=== PATIENT | female | born 1980 | race Caucasian/White ===

== ENCOUNTER 2016-09-25 12:34 | Inpatient (IN) ==
[2016-09-25] MEDS ORDERED: M.V.I.-12 10 ML, FOLIC ACID 1 MG, MAGNESIUM SULFATE 1 GM, THIAMINE 100 MG in NS 1,000 ML IV ONE (14:07)
[2016-09-25] MEDS ORDERED: ATIVAN IV ONE (14:34)
[2016-09-25 14:45] LABS: UR AMPHETAMINES QUAL NONE DETECTED (NONE DETECT); UR BARBITUATES QUAL NONE DETECTED (NONE DETECT); UR BENZODIAZEPIN QUAL PRESUMPTIVE POSITIVE (NONE DETECT); UR CANNABINOIDS QUAL NONE DETECTED (NONE DETECT); UR COCAINE QUAL NONE DETECTED (NONE DETECT); UR MDMA QUAL NONE DETECTED (NONE DETECT); UR METHADONE QUAL NONE DETECTED (NONE DETECT); UR METHAMPHETAMINE QUAL NONE DETECTED (NONE DETECT); UR OPIATES QUAL NONE DETECTED (NONE DETECT); UR OXYCODONE QUAL NONE DETECTED (NONE DETECT); UR PCP QUAL NONE DETECTED (NONE DETECT); UR TCA QUAL PRESUMPTIVE POSITIVE (NONE DETECT)
[2016-09-25 14:55] LABS: ALBUMIN 3.1 g/dL (3.5-5.0); ALKALINE PHOSPHATASE 423 U/L (32-104); BUN 5 mg/dL (8-22); CALCIUM 8.1 mg/dL (8.8-10.2); CHLORIDE 94 mmol/L (98-107); COSMO 271; GOT 376 U/L (10-30); GPT 153 U/L (10-36); SODIUM 137 mmol/L (136-145); TOTAL PROTEIN 6.2 g/dL (6.3-8.3)
[2016-09-25 15:08] LABS: POTASSIUM 2.3 mmol/L (3.5-5.1)
[2016-09-25 15:08] LABS: BASO% 0.6 % (0.0-0.8); EOS# 0.01 X1000 (0.0-0.7); EOS% 0.1 % (0.0-10.0); HEMATOCRIT 31.5 % (37.0-47.0); IMM GRAN# 0.06 X1000 (0.0-0.04); IMM GRAN% 0.8 % (0.0-0.5); LYMPH% 26.6 % (20.5-51.1); MANUAL DIFF NEEDED? YES; MCH 30.5 PG (27-31); MCHC 31.7 g/dL (33-37); MONO# 0.69 X1000 (0.11-0.59); MONO% 9.7 % (1.7-9.3); MPV 10.3 FL (7.4-10.4); NEUT% 62.2 % (42.2-75.2); PLT 347 X1000 (130-400); RBC 3.28 XMIL (4.2-5.4)
[2016-09-25 15:13] LABS: AGAP 21; TCO2 22 mmol/L (25-35)
[2016-09-25] MEDS ORDERED: NS + KCL 40 MEQ 1,000 ML IV SCH ×2 (15:32→16:10)
[2016-09-25] MEDS ORDERED: KLOR-CON PO ONE (15:36)
[2016-09-25 15:57] LABS: BANDS 2 % (0-1); EOS 1 % (1-10); LYMPHS 36 % (21-51); MONO 2 % (1-9)
--- NOTE | 2016-09-25 16:33 | PROVIDER DOCUMENTATION ---
This chart was entered by Abisai Bonilla Scribe, acting as scribe for León Manjarrez Jr, MD. HPI-General Adult - General Chief Complaint: General Adult Stated Complaint: WITHDRAWAL Time Seen by Provider: 09/25/16 13:24 Source: patient Allergies/Adverse Reactions: Patient Allergies Allergy/AdvReac Type Severity Reaction Status Date / Time No Known Allergies Allergy Verified 03/26/13 04:17 Home Medications: Home Medication List Medication Instructions Recorded Confirmed Last Taken Type NK [No Home Medications] 09/25/16 09/25/16 Unknown History - History of Present Illness -Gen Adult Nature of Presenting Problems: Pt is a 35 yof that presents to er with cc of possible panic attack. Pt reports she drinks 1/2 gallon of vodka daily and reports went two days without drinking drank yesterday and woke up this am at 0900 with fast heart rate,jittery feeling,and blurry vision. Pt reports she probably has Hepatitis A. Location of Pain/Injury: reports: generalized Quality of Pain: reports: none Severity: reports: moderate Onset/Duration: reports: this morning Timing: reports: still present Similar Symptoms Previously?: No Recently seen or treated by another doctor?: No Review of Systems - Adult - REVIEW OF SYSTEMS - ADULT Constitutional: denies: chills, fever, fatique Eyes: reports: no symptoms reported Ears, Nose, Mouth & Throat: denies: ear pain, sinus problem, throat pain Cardiovascular: reports: palpitations. denies: chest pain, irregular heart rate , orthopnea, syncope Respiratory: denies: cough, shortness of breath, wheezing Gastrointestinal: reports: no symptoms reported Genitourinary: reports: no symptoms reported Musculoskeletal: reports: no symptoms reported Integumentary: reports: no symptoms reported Neurological: reports: tremors. denies: numbness, paresthesia, seizure, slurred speech Psychiatric: reports: alcohol/drug dependence. denies: anxiety, anti- depressant use, depression, emotional problems, insomnia, panic attacks, suicidal thoughts Endocrine: reports: no symptoms reported Hematologic/Lymphatic: reports: no symptoms reported Allergic/Immunologic: reports: no symptoms reported All Other Systems: Reviewed and Negative Past History - Adult - PAST MEDICAL HISTORY-ADULT Review of Records: reports: Nursing Assessment Review, Medications Reviewed Major Childhood Illnesses: reports: denies history Cardiovascular: reports: denies history Respiratory: reports: denies history - IMMUNIZATION STATUS Childhood Immunizations: See Nurse Assessment Flu Vaccine: See Nurse Assessment - FAMILY HISTORY Family History: reviewed, not pertinent - SOCIAL HISTORY Smoking: denies Substance Use: alcohol Alcohol Use Frequency: every day Number of drinks per typical drinking period:: 16-20 drinks (1/2 gallon of vodka ) Physical Exam-General - PHYSICAL EXAM-ADULT Initial Vital Signs Reviewed: Yes - CONSTITUTIONAL General Appearance: alert, no apparent distress. negative: appears well - EYES Eyes: PERRL/EOMI, other (bilateral jaundice eyes) - HEAD, EARS, NOSE, MOUTH & THROAT HENMT: moist mucous membranes, TMs normal, pharynx normal - NECK Neck: non-tender, full range of motion, supple, normal inspection - RESPIRATORY Respiratory: chest non-tender, lungs clear, normal breath sounds, no pleuratic chest pain, no respiratory distress, no accessory muscle use - CARDIOVASCULAR Cardiovascular: tachycardia - GASTROINTESTINAL (ABDOMEN) Abdominal Exam: non tender, soft, no organomegaly, no pulsatile mass - MUSCULOSKELETAL Extremity: normal range of motion, non-tender, other (jittery) - SKIN Integumentary: normal turgor, jaundice - PSYCHIATRIC Psych/Mental Status: oriented x 3, depressed affect Progress - PLAN OF CARE/RESULTS Progress/Plan/Lab Results: Vital Signs - 8 hr 09/25/16 12:39 Temperature 98 F Pulse Rate 126 H Respiratory Rate 22 Blood Pressure 148/87 O2 Sat by Pulse Oximetry 99 Laboratory Tests 09/25/16 09/25/16 09/25/16 13:00 14:02 14:13 WBC 7.14 RBC 3.28 L Hgb 10.0 L Hct 31.5 L MCV 96.0 MCH 30.5 MCHC 31.7 L RDW Std Deviation 23.4 H Plt Count 347 MPV 10.3 Immature Gran % (Auto) 0.8 H Neut % (Auto) 62.2 Lymph % (Auto) 26.6 Alexander % (Auto) 9.7 H Eos % (Auto) 0.1 Baso % (Auto) 0.6 Immature Gran # (Auto) 0.06 H Neut # (Auto) 4.44 Lymph # (Auto) 1.90 Alexander # (Auto) 0.69 H Eos # (Auto) 0.01 Baso # (Auto) 0.04 Segmented Neutrophils 59 Band Neutrophils 2 H Lymphocytes 36 Monocytes 2 Eosinophils 1 Anisocytosis 1+ Sodium 137 Potassium 2.3 L* Chloride 94 L Carbon Dioxide 22 L Anion Gap 21 BUN 5 L Creatinine 0.3 L Estimated GFR/1.73 m2 > 60 BUN/Creatinine Ratio 17 Glucose 93 Calculated Osmolality 271 Calcium 8.1 L Total Bilirubin 11.30 H AST 376 H ALT 153 H Alkaline Phosphatase 423 H Total Protein 6.2 L Albumin 3.1 L Globulin 3.0 Albumin/Globulin Ratio 1.0 Vitamin B12 Folate Urine Opiates Screen NONE DETECTED Ur Oxycodone Screen NONE DETECTED Urine Methadone Screen NONE DETECTED Ur Barbituates Screen NONE DETECTED Ur Tricyclics Screen PRESUMPTIVE POSITIVE A Ur Phencyclidine Scrn NONE DETECTED Ur Amphetamines Screen NONE DETECTED U Methamphetamines Scrn NONE DETECTED Urine MDMA Screen NONE DETECTED U Benzodiazepines Scrn PRESUMPTIVE POSITIVE A Urine Cocaine Screen NONE DETECTED U Cannabinoids Screen NONE DETECTED Plasma/Serum Ethyl Alc 09/25/16 09/25/16 09/25/16 14:13 14:13 14:13 WBC RBC Hgb Hct MCV MCH MCHC RDW Std Deviation Plt Count MPV Immature Gran % (Auto) Neut % (Auto) Lymph % (Auto) Alexander % (Auto) Eos % (Auto) Baso % (Auto) Immature Gran # (Auto) Neut # (Auto) Lymph # (Auto) Alexander # (Auto) Eos # (Auto) Baso # (Auto) Segmented Neutrophils Band Neutrophils Lymphocytes Monocytes Eosinophils Anisocytosis Sodium Potassium Chloride Carbon Dioxide Anion Gap BUN Creatinine Estimated GFR/1.73 m2 BUN/Creatinine Ratio Glucose Calculated Osmolality Calcium Total Bilirubin AST ALT Alkaline Phosphatase Total Protein Albumin Globulin Albumin/Globulin Ratio Vitamin B12 > 2000 H Folate 37.7 H Urine Opiates Screen Ur Oxycodone Screen Urine Methadone Screen Ur Barbituates Screen Ur Tricyclics Screen Ur Phencyclidine Scrn Ur Amphetamines Screen U Methamphetamines Scrn Urine MDMA Screen U Benzodiazepines Scrn Urine Cocaine Screen U Cannabinoids Screen Plasma/Serum Ethyl Alc 40 H Result Diagrams: 09/25/16 14:02 09/25/16 14:13 - CONSULTS/PCP/HOSPITALIST Notification #1 *Consult/PCP/Hospitalist*: Time Discussed: 15:38 Consult Disposition: Will see in ED Departure - Departure Time of Disposition Decision: 16:23 DIAGNOSIS: Alcohol withdrawal, Hypokalemia, Elevated liver enzymes, Jaundice Disposition: ADMITTED INPATIENT 09 Certified Medical Emergency: Emergent Condition: Fair Referrals and Follow-Ups: None,PCP [Primary Care Provider] - This chart was documented by the indicated scribe, (Abisai Bonilla Scribe) and accurately reflects the services I performed and decisions made by me, León Manjarrez Jr, MD, as attested by the provider's signature.
--- NOTE | 2016-09-25 17:05 | HISTORY AND PHYSICAL ---
PRIMARY CARE PHYSICIAN: None. CHIEF COMPLAINT: Nausea and vomiting of black emesis after attempting to stop drinking when she had been drinking 1/2 gallon of vodka daily. HISTORY OF PRESENTING ILLNESS: This is a 35-year-old female who presented to [facility] ER with complaints of nausea, vomiting of black emesis, abdominal pain, feeling jittery, blurred vision, and increased heart rate. She sates that she has been a 1/2 gallon a day drinker of vodka. Two days ago, she attempted to stop. She began back drinking yesterday. During the 2 days that she attempted to stop, she began having nausea and vomiting that turned to blackish-brown emesis, according to the patient, with abdominal pain and tenderness, primarily in the epigastric area. Workup in the ER today showed a heart rate of 126. Labs showed a hemoglobin and hematocrit of 10 and 31.5. Her potassium was 2.3. Her total bilirubin is 11.3, AST of 376, ALT 153, alkaline phosphatase 423. Her serum alcohol level today is 40. Her urine drug screen was presumptive positive for tricyclics and benzodiazepines, and so she will be admitted to [facility] for further evaluation and treatment and GI consultation. PAST MEDICAL HISTORY: Questionable for hepatitis A, seizures, and hypertension. PAST SURGICAL HISTORY: None. FAMILY HISTORY: Breast cancer in her grandmother. SOCIAL HISTORY: She currently lives with her mom. Denies any tobacco use. Drinks 1/2 gallon of vodka daily. Denied any illicit drug use. ALLERGIES: She has no known drug allergies. HOME MEDICATIONS: She does not take any medications on a routine basis. LABORATORY DATA: Showed a white blood cell count of 7.14, hemoglobin of 10, hematocrit 31.5, platelets 347,000. Sodium of 137, potassium 2.3, chloride 94, CO2 of 22, BUN of 5, creatinine 0.3. Total bilirubin of 11.3. AST of 376, ALT of 153, alkaline phosphatase 423. Vitamin B12 greater than 2000. Urine drug screen presumptive positive for tricyclics and benzodiazepines with a serum alcohol level of 40. REVIEW OF SYSTEMS: She denied any fever or chills. She has had some blurred vision, jitteriness, increased heart rate. Denied chest pain, coughing, shortness of breath. She is positive for epigastric abdominal pain, nausea, vomiting with hematemesis. Denied any constipation, diarrhea, or burning or hurting with urination. PHYSICAL EXAMINATION: VITAL SIGNS: On arrival, she had a temperature of 98 degrees, a pulse of 126, respirations 22, blood pressure 148/87, saturating 99% on room air. GENERAL: This is a 35-year-old female who is lying in the bed and answers questions appropriately. HEENT: Normocephalic and atraumatic. Pupils are equal, round, and reactive to light. The extraocular movements are intact. The oropharynx and nares are clear. NECK: Supple. LUNGS: Clear to auscultation bilaterally with equal lung expansion and chest wall movement. HEART: With regular rate and rhythm. No murmurs, rubs, or gallops. ABDOMEN: Soft. Tenderness to palpation to the epigastric area. Bowel sounds are present x4 quadrants. EXTREMITIES: No clubbing, cyanosis, or edema. NEUROLOGICAL: The cranial nerves 2 through 12 are grossly intact. ASSESSMENT: 1. Alcohol abuse and withdrawal. 2. Acute alcohol Hepatitis with discriminant score 12 hepatic syndrome. 3. Elevated liver function tests. 4. Hypokalemia. 5. Suspected GI bleed PLAN: She will be transferred to [facility] and admitted to the C[facility] floor, placed on telemetry, held n.p.o. We will consult GI. Check serial hemoglobin and hematocrit every [address] on normal saline at 150 mL an hour, potassium 20 mEq IV x2 bags. Placed on a Protonix drip. Ativan 1 to 2 mg IV every 4 hours p.r.n.. She has a folate, hepatitis profile, and a PT with INR pending in the ER right now. The patient states she is definitely interested in obtaining help for alcohol cessation, so at discharge we will assist her with obtaining that help at that time. Dictated by JOSUE Goodrich for Chago Zarco MD cc: JOSUE Goodrich MD [facility]
[2016-09-25] MEDS: ATIVAN IV PRN (18:37)
[2016-09-25] MEDS: NS 1,000 ML IV SCH (18:40)
[2016-09-25] MEDS: POTASSIUM CHLORIDE 20 MEQ/SWI 20 MEQ/100 ML IVPB IV SCH ×2 (19:15→21:58)
[2016-09-25] MEDS: PROTONIX 80 MG in NS 100 ML IV SCH (19:16)
[2016-09-25 20:05] LABS: HEMATOCRIT 29.8 % (37.0-47.0); HEMOGLOBIN 9.4 g/dL (12.0-16.0)
[2016-09-25 20:11] LABS: INR 1.14; PROTIME 12.1 Seconds (9.2-11.7)
[2016-09-25] MEDS ORDERED: PHENOBARBITAL IV ONE (21:25)
[2016-09-25] MEDS: VALIUM IV SCH ×2 (21:58→22:53)
[2016-09-26] MEDS: NS 1,000 ML IV SCH ×4 (00:51→21:46)
[2016-09-26] MEDS: ATIVAN IV PRN ×8 (01:38→21:47)
[2016-09-26 02:55] LABS: HEMATOCRIT 25.1 % (37.0-47.0); HEMOGLOBIN 7.8 g/dL (12.0-16.0)
[2016-09-26] MEDS: PROTONIX 80 MG in NS 100 ML IV SCH ×3 (04:42→21:46)
[2016-09-26] MEDS ORDERED: PNEUMOVAX 23 IM ONE (05:48)
[2016-09-26] MEDS: PHENOBARBITAL IV PRN ×5 (08:02→23:44)
--- NOTE | 2016-09-26 08:36 | PROGRESS NOTE ---
DATE: 09/26/2016 SUBJECTIVE: This is a 35-year-old who was admitted to [place] yesterday, transferred over here. Presented to [facility] with complaints of nausea, vomiting and black emesis, abdominal pain, feeling jittery, blurred vision, increased heart rate. States she has been at 1/2 gallon of vodka a day for quite some time. Two days ago she attempted to stop and again began back to drinking the day before admission. In the 2 days she attempted to stop, she was having nausea and vomiting and had blackish-brown emesis, according to the patient. Workup in ER showed a heart rate of 126. Labs showed hemoglobin and hematocrit of 10 and 31.5 respectively. Potassium 2.3, bilirubin was 11.3, AST 376, ALT 153, alkaline phosphatase 423. Her serum alcohol level was 40. Her urine drug screen presumptive positive for tricyclics and benzodiazepines. She has questionable history of hepatitis A in the past, history of seizures and hypertension. Admitted with alcohol abuse and alcoholic hepatitis, acute hepatic syndrome, elevated transaminases and bilirubin and hypokalemia. PHYSICAL EXAM: General: Today, she says she feels awful. She is awake, alert and oriented. She has a headache. She is just aching all over and just low-grade nausea. Vital Signs: Temp 99.1 degrees, pulse 114, respirations 18, blood pressure 124/81. HEENT: Pupils are equal, round. CVP less than 6 cm. Lungs: Clear in all lung juárez. Cardiovascular: Regular rhythm and rate without murmur or S3. Abdomen: Soft. Skin: Warm and dry. LABORATORY: Urine output was 2200. Note that hemoglobin was 9.4, hematocrit 29. This morning it is 7.8 and 25. Sodium was 137, potassium 2.3, chloride 94, BUN 5, creatinine 0.3. I am going to check electrolytes again this morning and magnesium with it. Check her liver functions. Follow up. ASSESSMENT AND PLAN: 1. Alcoholic hepatitis. Alcohol withdrawal. Hypokalemia. I suspect hypomagnesemia. We will check her levels and supplement. Continue IV fluids. She is at high risk to go through delirium tremens. She does have phenobarbital ordered p.r.n. and I think she has Ativan ordered p.r.n. as well. 2. We will let her have some clear liquids. Hematocrit and hemoglobin have dropped. We will watch this. She may need some blood. cc: Alfonso Watts MD
[2016-09-26 08:37] LABS: HEMATOCRIT 25.9 % (37.0-47.0)
[2016-09-26 10:19] LABS: AGAP 14; ALBUMIN 2.4 g/dL (3.5-5.0); ALKALINE PHOSPHATASE 313 U/L (32-104); BUN 6 mg/dL (8-22); CHLORIDE 105 mmol/L (98-107); COSMO 276; GOT 297 U/L (10-30); GPT 105 U/L (10-36); MAGNESIUM 1.7 mg/dL (1.5-2.7); POTASSIUM 3.1 mmol/L (3.5-5.1); SODIUM 140 mmol/L (136-145); TCO2 21 mmol/L (25-35); TOTAL PROTEIN 4.7 g/dL (6.3-8.3)
[2016-09-26 10:30] LABS: CALCIUM 6.4 mg/dL (8.8-10.2)
[2016-09-26] MEDS ORDERED: CALCIUM GLUCONATE 1 GM in NS 50 ML IV ONE (11:00)
[2016-09-26 11:41] LABS: HEPATITIS PROFILE ACUTE SEE COMMENTS
[2016-09-26] MEDS: TRENTAL PO SCH ×3 (16:00→22:50)
[2016-09-26] MEDS: PHENERGAN IV PRN (18:05)
[2016-09-26] MEDS ORDERED: TORADOL IV ONE (21:21)
[2016-09-27] MEDS: PROTONIX 80 MG in NS 100 ML IV SCH ×4 (02:23→21:26)
[2016-09-27] MEDS: NS 1,000 ML IV SCH ×4 (04:26→19:20)
[2016-09-27] MEDS: ATIVAN IV PRN ×12 (04:29→23:58)
[2016-09-27 05:46] LABS: FREE T4 1.34 ng/dL (0.93-1.70)
[2016-09-27 06:00] LABS: AGAP 14; ALBUMIN 2.2 g/dL (3.5-5.0); ALKALINE PHOSPHATASE 299 U/L (32-104); BUN 2 mg/dL (8-22); CALCIUM 6.5 mg/dL (8.8-10.2); CHLORIDE 104 mmol/L (98-107); COSMO 274; GOT 316 U/L (10-30); GPT 107 U/L (10-36); MAGNESIUM 1.4 mg/dL (1.5-2.7); POTASSIUM 2.7 mmol/L (3.5-5.1); SODIUM 139 mmol/L (136-145); TCO2 21 mmol/L (25-35); TOTAL BILIRUBIN 9.23 mg/dL (0.20-1.00); TOTAL PROTEIN 4.3 g/dL (6.3-8.3)
[2016-09-27] MEDS ORDERED: CALCIUM GLUCONATE 1 GM in NS 50 ML IV ONE (06:05)
[2016-09-27] MEDS: TRENTAL PO SCH ×4 (08:13→21:59)
[2016-09-27] MEDS ORDERED: MAGNESIUM SULFATE 2 GM/S.W.I. 2 GM/50 ML IVPB IV ONE (10:48)
[2016-09-27] MEDS: TYLENOL PO PRN ×3 (10:50→21:26)
[2016-09-27] MEDS: MAG-OX PO SCH ×3 (11:22→21:59)
--- NOTE | 2016-09-27 11:45 | PROGRESS NOTE ---
DATE: 09/27/2016 SUBJECTIVE: Ms Joshi still feels pretty rough, but she is awake, alert and oriented. I do not see any active tremor right now. OBJECTIVE: Vital Signs: Temp 99.9 degrees, pulse 90, respirations 29, blood pressure 117/80. HEENT: Pupils were equal and round. CVP less than 6 cm. Lungs: Clear in all lung juárez. Cardiovascular exam: Regular rhythm and rate without murmur or S3. Abdomen: Soft. Skin: Warm and dry. She is requesting solid food. Her urine output has been over 5 L. Hematocrit is stable at 25, hemoglobin is 8. Chemistries: This morning blood sugars are 109, 98, 147 and 142. ASSESSMENT AND PLAN: 1. Upper gastrointestinal bleeding. Alcohol abuse pretty heavy; half a gallon of whiskey a day or vodka a day. Minimal signs of withdrawal which is surprising. We are hitting the 72 hour point where we may be getting delirium tremens, but so far doing well. 2. Acute hepatic syndrome, alcoholic hepatitis. Continue to watch liver enzymes. 3. Hypokalemia which has been supplemented. I am going to put her on a regular diet at her request, and we will continue to supplement magnesium and potassium. Continues to supplement calcium as well. cc: Alfonso Watts MD
[2016-09-27] MEDS: POTASSIUM CHLORIDE 20 MEQ/SWI 20 MEQ/100 ML IVPB IV SCH ×2 (12:35→14:33)
[2016-09-27] MEDS: PHENERGAN IV PRN ×2 (12:44→23:58)
[2016-09-27] MEDS: ICAR-C PO SCH ×3 (15:40→21:58)
[2016-09-27] MEDS: CENTRUM SILVER PO SCH ×2 (19:20→21:58)
[2016-09-27] MEDS: SODIUM CHLORIDE 0.9% INJ PRN (23:58)
--- NOTE | 2016-09-28 00:59 | CONSULTATION ---
DATE OF CONSULTATION: 09/27/2016 CONSULTING PHYSICIAN: Dr. Alfonso Watts SUBJECTIVE: The patient is currently resting in bed. She is feeling better. She denies any nausea or vomiting. She was able to eat 100% of her meal today. She has a history of alcoholism since age 15, but has worsened in the last few years. She drinks about a half a gallon of vodka every day. Family history very strong for alcoholism. Her mother is also an alcoholic. She recently moved from [place] to this area a few months ago and she is currently living with her mother who recently got in the area here. OBJECTIVE: Vital Signs: Temperature 98.9, pulse of 124, respiratory rate 16, blood pressure 121/81, saturating 100% on room air. General Appearance: Body weight of 159 pounds 12 ounces. BMI of 31.2 kg. The patient is obese, lying in bed, in no acute distress. HEENT: Pale conjunctiva. Icteric sclera. Neck: Supple. Abdomen: Protuberant and mildly distended. Maybe is a question of ascites. No guarding. Mild discomfort. Bowel sounds are present. Extremities: No cyanosis, clubbing. Neurologic: She is alert, awake, oriented x3. LABORATORY DATA: Hemoglobin and hematocrit is 8 and 25.9, white count of 7.1, platelet count of 347,000. INR 1.14. Sodium 139, potassium 2.7, chloride 104, bicarbonate 21, anion gap of 14, BUN of 2, creatinine 0.4, glucose of 98, calcium is 6.5, magnesium 1.4, total bilirubin is 9.23, AST 316, ALT 107, alkaline phosphatase 299, total protein 4.2, albumin of 2.2. Folate of 37.7. B12 of more than 2000. Toxicology screen positive for tricyclic antidepressants and benzodiazepines and positive alcohol level of 40. Hepatitis panel was nonreactive. IMPRESSION AND PLAN: 1. Alcoholic hepatitis with elevated enzymes and jaundice and the patient was counseled to quit alcohol completely. In the meanwhile, we will continue on banana bag and multivitamin and IV fluids. We will avoid any hepatotoxic drugs. Her hepatitis panel is negative. 2. Anemia which could be secondary to alcoholic gastritis will keep her on PPIs twice daily and watch her hemoglobin and hematocrit and transfuse as needed. 3. Tachycardia with likely alcohol withdrawal. She is at high risk of delirium tremens. She continues to be watched closely. Per the primary team. 4. Electrolyte imbalance. Being monitored per the primary team. 5. The above plan of care was discussed with the patient and all questions are answered. cc: MD Louie Larkin MD
[2016-09-28] MEDS: NS 1,000 ML IV SCH ×4 (01:20→20:40)
[2016-09-28] MEDS: ATIVAN IV PRN ×9 (01:51→22:58)
[2016-09-28 05:37] LABS: BASO% 1.2 % (0.0-0.8); EOS# 0.03 X1000 (0.0-0.7); EOS% 0.6 % (0.0-10.0); HEMATOCRIT 26.4 % (37.0-47.0); HEMOGLOBIN 8.2 g/dL (12.0-16.0); IMM GRAN# 0.22 X1000 (0.0-0.04); IMM GRAN% 4.3 % (0.0-0.5); LYMPH% 31.4 % (20.5-51.1); MANUAL DIFF NEEDED? NO; MCH 33.3 PG (27-31); MCHC 31.1 g/dL (33-37); MCV 107.3 FL (81-99); MONO# 0.56 X1000 (0.11-0.59); MPV 10.3 FL (7.4-10.4); NEUT% 51.5 % (42.2-75.2); PLT 261 X1000 (130-400); RBC 2.46 XMIL (4.2-5.4)
[2016-09-28 05:50] LABS: AGAP 12; ALBUMIN 2.3 g/dL (3.5-5.0); ALKALINE PHOSPHATASE 262 U/L (32-104); BUN 1 mg/dL (8-22); CHLORIDE 108 mmol/L (98-107); COSMO 279; GOT 245 U/L (10-30); GPT 104 U/L (10-36); MAGNESIUM 1.7 mg/dL (1.5-2.7); POTASSIUM 2.8 mmol/L (3.5-5.1); SODIUM 142 mmol/L (136-145); TCO2 22 mmol/L (25-35); TOTAL BILIRUBIN 8.48 mg/dL (0.20-1.00); TOTAL PROTEIN 4.7 g/dL (6.3-8.3)
[2016-09-28 05:53] LABS: CALCIUM 6.9 mg/dL (8.8-10.2)
[2016-09-28] MEDS ORDERED: CALCIUM GLUCONATE 2 GM in NS 100 ML IV ONE (06:14)
[2016-09-28] MEDS: PROTONIX 80 MG in NS 100 ML IV SCH ×2 (06:43→17:18)
[2016-09-28] MEDS: MAG-OX PO SCH ×2 (08:20→20:42)
[2016-09-28] MEDS: TRENTAL PO SCH ×3 (08:20→20:42)
[2016-09-28] MEDS: ICAR-C PO SCH ×2 (08:20→20:41)
[2016-09-28] MEDS: CENTRUM SILVER PO SCH ×2 (08:21→20:41)
--- NOTE | 2016-09-28 08:48 | PROGRESS NOTE ---
DATE: 09/28/2016 Martina was sleeping. She did pull out her IV last night but doing a little better. OBJECTIVE: Vital signs: Temp was 100.2 degrees, pulse 110, respirations 16, blood pressure 108/67. HEENT: Pupils are equal and round. Neck: CVP less than 6 cm. Lungs: Clear in all lung juárez. Cardiovascular: Regular rhythm and rate without murmur or S3. Intake and output: Urine output looks like it was close to 6 L. LABORATORY: White count 5,090, hematocrit 26, platelet count 261,000. Sodium 142, potassium 2.8, chloride 108, bicarb 22, blood sugar is 122, 255, and . Magnesium was 1.7. Will supplement some more potassium today. ASSESSMENT: 1. Alcoholic hepatitis. Elevated liver enzymes. This patient has quit alcohol recently. Continue banana bag. Avoid hepatotoxic drugs. Hepatitis panel was negative. She appears to be doing a little better. Continue benzodiazepines as necessary. Put her back on her home medicine which Lexapro and also some Xanax. 2. Anemia secondary to alcoholic gastritis. Continue PPIs twice a day. 3. Tachycardia and increased adrenergic symptoms related to alcohol withdrawal, likely. 4. Will supplement some potassium today. It seems like we are making some improvement. REVIEW OF HER ORDERS: I do not see any change at this point. cc: Alfonso Watts MD
[2016-09-28] MEDS ORDERED: LEXAPRO PO SCH (09:00)
[2016-09-28] MEDS ORDERED: XANAX PO SCH (09:00)
[2016-09-28] MEDS ORDERED: POTASSIUM CHLORIDE 20% LIQUID PO SCH (09:00)
[2016-09-28] MEDS: LEXAPRO PO SCH (10:49)
[2016-09-28] MEDS: TYLENOL PO PRN (10:49)
[2016-09-28] MEDS: XANAX PO SCH (10:50)
[2016-09-28] MEDS: POTASSIUM CHLORIDE 20 MEQ/SWI 20 MEQ/100 ML IVPB IV SCH ×2 (11:57→14:58)
[2016-09-28] MEDS: SODIUM CHLORIDE 0.9% INJ PRN (20:41)
[2016-09-28] MEDS: PHENERGAN IV PRN (20:41)
[2016-09-29] MEDS: ATIVAN IV PRN ×8 (00:03→23:36)
[2016-09-29] MEDS: TYLENOL PO PRN (00:03)
[2016-09-29 05:01] LABS: BASO% 1.4 % (0.0-0.8); EOS# 0.04 X1000 (0.0-0.7); EOS% 0.8 % (0.0-10.0); HEMATOCRIT 27.4 % (37.0-47.0); HEMOGLOBIN 8.2 g/dL (12.0-16.0); LYMPH# 1.48 X1000 (1.2-3.4); LYMPH% 29.9 % (20.5-51.1); MANUAL DIFF NEEDED? NO; MCH 32.4 PG (27-31); MCHC 29.9 g/dL (33-37); MCV 108.3 FL (81-99); MONO# 0.71 X1000 (0.11-0.59); MONO% 14.3 % (1.7-9.3); MPV 9.8 FL (7.4-10.4); NEUT% 49.6 % (42.2-75.2); PLT 267 X1000 (130-400); RBC 2.53 XMIL (4.2-5.4)
[2016-09-29 05:14] LABS: AGAP 13; BUN 2 mg/dL (8-22); CALCIUM 7.1 mg/dL (8.8-10.2); CHLORIDE 107 mmol/L (98-107); COSMO 276; MAGNESIUM 1.4 mg/dL (1.5-2.7); POTASSIUM 3.5 mmol/L (3.5-5.1); SODIUM 140 mmol/L (136-145); TCO2 20 mmol/L (25-35)
[2016-09-29] MEDS ORDERED: MAGNESIUM SULFATE 2 GM/S.W.I. 2 GM/50 ML IVPB IV ONE (05:21)
[2016-09-29] MEDS: PROTONIX IV SCH ×2 (05:51→17:12)
[2016-09-29] MEDS: SODIUM CHLORIDE 0.9% INJ SCH ×2 (05:51→17:12)
[2016-09-29] MEDS: NS 1,000 ML IV SCH (05:53)
[2016-09-29 05:57] LABS: ALBUMIN 2.3 g/dL (3.5-5.0); DIRECT BILIRUBIN 6.1 mg/dL (0.00-0.20); TOTAL BILIRUBIN 7.51 mg/dL (0.20-1.00); TOTAL PROTEIN 4.6 g/dL (6.3-8.3)
[2016-09-29] MEDS ORDERED: SODIUM PHOSPHATE 30 MMOL in NS 250 ML IV ONE (06:10)
[2016-09-29] MEDS ORDERED: NS IV ONE (07:00)
[2016-09-29] MEDS ORDERED: POTASSIUM PHOSPHATE IV ONE (07:00)
[2016-09-29] MEDS: MAG-OX PO SCH ×2 (08:13→20:26)
[2016-09-29] MEDS: TRENTAL PO SCH ×3 (08:13→20:26)
[2016-09-29] MEDS: CENTRUM SILVER PO SCH ×2 (08:13→20:25)
[2016-09-29] MEDS: XANAX PO SCH (08:13)
[2016-09-29] MEDS: ICAR-C PO SCH ×2 (08:13→20:26)
[2016-09-29] MEDS: LEXAPRO PO SCH (08:13)
--- NOTE | 2016-09-29 10:00 | PROGRESS NOTE ---
DATE: 09/29/2016 SUBJECTIVE: Ms. Joshi is feeling better. A little lethargic this morning. She is eating. I want to try and get her out of bed and increase her activity. OBJECTIVE: She remains afebrile. Temperature 99.1 degrees. She has had a low-grade temperature of 100-100.2, pulse 90, respirations 18, blood pressure 107/66. Pupils are equal, round. Lungs are clear in all lung juárez. Cardiovascular: Regular rhythm and rate without murmur or S3. Abdomen is soft. Skin is warm and dry. Urine output 4600 mL. Blood sugar 193/112. White blood cell count 4950. Hematocrit stable at 27. Platelet count 267,000. MCV is 108. Chemistries: Sodium 140, potassium 3.5, chloride 107, bicarb 20. BUN is 2, creatinine 0.4, blood sugar is 130 to 105, 112. Phosphorus still low a 0.9. Magnesium low at 1.4. We will supplement some more magnesium and K-Phos. ASSESSMENT AND PLAN: 1. Alcoholic hepatitis, elevated liver enzymes, improving. This is through, I think, the first 3 days with withdrawal symptoms abating at the present time. Liver functions seem to be going down. AST 142, ALT 80, alkaline phos 224. 2. Hypophosphatemia, hypokalemia, hypomagnesemia, we will supplement some more today. 3. Plan on getting physical therapy involved to see if we can get her out of bed. 4. Anemia secondary to gastritis. Continue proton pump inhibitors. cc: Alfonso Watts MD
[2016-09-29 16:01] LABS: MAGNESIUM 1.8 mg/dL (1.5-2.7); POTASSIUM 3.8 mmol/L (3.5-5.1)
[2016-09-29] MEDS ORDERED: MOTRIN PO PRN (17:13)
[2016-09-29] MEDS: PHENERGAN IV PRN (21:20)
[2016-09-30 05:22] LABS: AGAP 13; ALBUMIN 2.3 g/dL (3.5-5.0); ALKALINE PHOSPHATASE 232 U/L (32-104); BUN 4 mg/dL (8-22); CALCIUM 6.9 mg/dL (8.8-10.2); CHLORIDE 108 mmol/L (98-107); COSMO 279; GOT 126 U/L (10-30); GPT 66 U/L (10-36); MAGNESIUM 1.8 mg/dL (1.5-2.7); POTASSIUM 3.8 mmol/L (3.5-5.1); SODIUM 141 mmol/L (136-145); TCO2 20 mmol/L (25-35); TOTAL BILIRUBIN 8.05 mg/dL (0.20-1.00); TOTAL PROTEIN 4.7 g/dL (6.3-8.3)
[2016-09-30] MEDS: PROTONIX IV SCH ×2 (05:46→18:36)
[2016-09-30] MEDS: SODIUM CHLORIDE 0.9% INJ SCH ×2 (05:46→18:36)
[2016-09-30] MEDS: CENTRUM SILVER PO SCH ×2 (08:21→20:01)
[2016-09-30] MEDS: ICAR-C PO SCH ×2 (08:21→20:01)
[2016-09-30] MEDS: TRENTAL PO SCH ×3 (08:21→20:01)
[2016-09-30] MEDS: XANAX PO SCH (08:21)
[2016-09-30] MEDS: MAG-OX PO SCH ×2 (08:22→20:01)
[2016-09-30] MEDS: LEXAPRO PO SCH (08:22)
[2016-09-30] MEDS: ATIVAN IV PRN ×5 (09:21→23:04)
[2016-09-30] MEDS ORDERED: CALCIUM GLUCONATE 2 GM in NS 100 ML IV ONE (12:00)
[2016-09-30] MEDS: LIBRIUM PO SCH ×2 (12:16→18:36)
--- NOTE | 2016-09-30 13:06 | PROGRESS NOTE ---
DATE: 09/30/2016 Today Ms. Joshi referred to be doing okay. According to her, she had some loose bowel about 3 times since early today and also having some dry heaves. OBJECTIVE: Vital signs: Blood pressure is 108/68, pulse of 118, temperature is 99.1 degrees, respirations 20. Patient is saturating 99% on room air. General Exam: Ms. Joshi is a 35-year- old female. She was in bed. She did not seem to be in any distress. HEENT: Mucosa is pink and moist. It is slightly icteric but acyanotic. Chest: Good air entry bilateral. Cardiovascular: Regular rate and rhythm. Abdomen: Soft, mildly tender in all 4 quadrants. Bowel sounds are present. Extremities: No pedal edema. STEWARD/STEWARDESS WINE: Patient is alert and oriented x4. There is no focal neurological deficit. LABORATORY DATA: WBC is 4.95, hemoglobin is 8.2, platelet count is 267,000. Chemistry is reviewed. Sodium is 140, potassium is 3.1, chloride is 105, bicarb is 21. Patient's calcium is 6.4. AST is down to 297. ALT is down to 105, alkaline phosphatase down to 313. Patient's current medications include Xanax, Lexapro, multivitamin. ASSESSMENT: 1. Acute alcoholic hepatitis with hepatic discriminant function score of 12. That is relatively lower than the score of 32 which will qualify the patient to be on steroid/ pentoxifylline however patient is on pentoxifylline as per GI recommendations. 2. Multi mineral/vitamin deficiencies likely due to underlying alcohol ( hypophosphatemia, hypokalemia, hypomagnesemia and hypocalcemia). Will replace all of these. 3. Anemia likely due to gastritis. Patient is currently on PPI and I have discontinued the ibuprofen. 4. Signs of alcohol withdrawal on presentation. Patient does have history of severe withdrawals including seizures. She is currently on Xanax and p.r.n. Ativan. I will add Librium for long- term benzo replacement and I think on the long-term patient would need to follow up with the [facility] program in [place]. 5. History of anxiety/depression. Patient is on Lexapro. Will plan to continue on the same. So in general I think Ms. Joshi is doing fine. We will add the Librium to the short-acting benzos. We will continue with the current care and trend her liver function tests. I anticipate the patient being discharged tomorrow or the day after. We will keep a very close eye on the diarrhea that the patient is having now. cc: Chago Zarco MD MTDD
--- NOTE | 2016-09-30 14:45 | Diag Imaging Result Document ---
PROCEDURE NAME: US ABDOMEN-COMPLETE - 09/30/2016 ULTRASOUND ABDOMEN COMPLETE: COMPARISON: None. FINDINGS: There is severe, diffuse fatty change of the liver. There is hepatomegaly. The gallbladder is collapsed and otherwise unremarkable. No shadowing gallstones. Spleen size is 12 cm maximally. The common bile duct measures 5 mm. Both kidneys are normal. Pancreas is normal. Aorta, IVC and main portal vein are patent. IMPRESSION: Severe fatty liver. Hepatomegaly.
[2016-09-30] MEDS: SODIUM CHLORIDE 0.9% INJ PRN ×2 (17:25→23:20)
[2016-09-30] MEDS: PHENERGAN IV PRN ×2 (17:25→23:19)
[2016-10-01] MEDS: ATIVAN IV PRN ×5 (03:41→22:41)
[2016-10-01] MEDS: LIBRIUM PO SCH ×3 (03:41→18:38)
[2016-10-01 06:35] LABS: AGAP 12; ALBUMIN 2.4 g/dL (3.5-5.0); ALKALINE PHOSPHATASE 216 U/L (32-104); BUN 5 mg/dL (8-22); CALCIUM 7.3 mg/dL (8.8-10.2); CHLORIDE 106 mmol/L (98-107); COSMO 274; GOT 127 U/L (10-30); GPT 59 U/L (10-36); POTASSIUM 3.7 mmol/L (3.5-5.1); SODIUM 138 mmol/L (136-145); TCO2 20 mmol/L (25-35); TOTAL BILIRUBIN 7.78 mg/dL (0.20-1.00); TOTAL PROTEIN 5.3 g/dL (6.3-8.3)
[2016-10-01 06:41] LABS: BASO% 1.3 % (0.0-0.8); EOS# 0.05 X1000 (0.0-0.7); EOS% 1.1 % (0.0-10.0); HEMATOCRIT 29.7 % (37.0-47.0); IMM GRAN# 0.08 X1000 (0.0-0.04); IMM GRAN% 1.7 % (0.0-0.5); LYMPH# 1.39 X1000 (1.2-3.4); LYMPH% 29.4 % (20.5-51.1); MANUAL DIFF NEEDED? YES; MCH 34.1 PG (27-31); MCHC 30.3 g/dL (33-37); MCV 112.5 FL (81-99); MONO# 0.76 X1000 (0.11-0.59); MONO% 16.1 % (1.7-9.3); MPV 10.6 FL (7.4-10.4); NEUT% 50.4 % (42.2-75.2); PLT 315 X1000 (130-400); RBC 2.64 XMIL (4.2-5.4)
[2016-10-01] MEDS: PROTONIX IV SCH ×2 (06:45→18:39)
[2016-10-01] MEDS: SODIUM CHLORIDE 0.9% INJ SCH ×3 (06:45→22:30)
[2016-10-01 07:46] LABS: BANDS 4 % (0-1); LYMPHS 30 % (21-51); MONO 10 % (1-9); NRBC 1 % (0-0)
[2016-10-01 07:47] LABS: HYPOCHROM 1+
[2016-10-01] MEDS: MAG-OX PO SCH ×2 (08:19→20:55)
[2016-10-01] MEDS: XANAX PO SCH (08:19)
[2016-10-01] MEDS: CENTRUM SILVER PO SCH ×2 (08:19→20:55)
[2016-10-01] MEDS: ICAR-C PO SCH ×2 (08:19→20:55)
[2016-10-01] MEDS: TRENTAL PO SCH ×3 (08:19→20:55)
[2016-10-01] MEDS: LEXAPRO PO SCH (08:19)
[2016-10-01] MEDS: SODIUM CHLORIDE 0.9% INJ PRN ×2 (09:30→15:38)
[2016-10-01] MEDS: PHENERGAN IV PRN ×3 (09:30→22:30)
--- NOTE | 2016-10-01 13:01 | PROGRESS NOTE ---
DATE: 10/01/2016 Today Ms. Joshi refers to be doing better. Has some nauseating but her diarrhea has improved. OBJECTIVE: Vital signs: Blood pressure is 103/68, pulse of 100, respirations 16, temperature is 99.6 degrees. General: Ms. Joshi is a 35-year-old female. She is in bed, does not seem to be in any distress. HEENT: Mucosa is pink and moist. Anicteric. Acyanotic. Neck: Supple. Chest: Good air entry bilaterally. No crepitations. No rhonchi. Cardiovascular: Regular rate and rhythm. Abdomen: Soft, nontender. Mild hepatomegaly. Extremities: No pedal edema. WHEEL TRUER: Patient is alert and oriented x4. There is no focal neurological deficit. LABORATORY DATA: WBC is 4.73, hemoglobin is 9.0, platelet count of 315,000. Chemistry is reviewed. No abnormality. The AST is 127, ALT is 59, alkaline phosphatase is 216 and continues to be improving. Total bilirubin is 7.78 also slightly improved from yesterday. Vitamin D is 11.6, which is ridiculously low. ASSESSMENT: 1. Acute alcoholic hepatitis. 2. Severe fatty liver disease with hepatomegaly secondary to alcohol abuse. 3. Multi mineral vitamin deficiencies (hypophosphatemia, hypokalemia, hypomagnesemia, hypocalcemia). We think this is all due to the alcohol bingeing. 4. Anemia likely due to gastritis. The patient is on PPI. Will DC the ibuprofen. Hemoglobin and hematocrit continue to be relatively stable. 5. Vitamin D deficiency. We will continue to address that. 6. Signs of alcohol withdrawal on presentation. The patient is currently on Librium and Ativan. Will also add baclofen to help with craving. 7. History of anxiety/depression. We will continue with her home medications. 8. We spoke extensively about Ms. Joshi at the IPOC meeting today to look into an institution where she will get help to go through with the alcohol addiction. food prep worker and case management are looking into that. cc: Chago Zarco MD [facility]
[2016-10-01] MEDS: LIORESAL PO SCH ×2 (13:09→21:04)
[2016-10-02] MEDS: LIBRIUM PO SCH ×3 (03:20→11:31)
[2016-10-02] MEDS: PROTONIX IV SCH (05:37)
[2016-10-02] MEDS: SODIUM CHLORIDE 0.9% INJ SCH (05:37)
[2016-10-02 05:42] LABS: AGAP 12; ALBUMIN 2.8 g/dL (3.5-5.0); ALKALINE PHOSPHATASE 209 U/L (32-104); BUN 6 mg/dL (8-22); CALCIUM 7.8 mg/dL (8.8-10.2); CHLORIDE 105 mmol/L (98-107); COSMO 275; GOT 142 U/L (10-30); GPT 62 U/L (10-36); POTASSIUM 3.8 mmol/L (3.5-5.1); SODIUM 139 mmol/L (136-145); TCO2 22 mmol/L (25-35); TOTAL BILIRUBIN 7.64 mg/dL (0.20-1.00); TOTAL PROTEIN 5.3 g/dL (6.3-8.3)
[2016-10-02] MEDS: CENTRUM SILVER PO SCH (09:58)
[2016-10-02] MEDS: ICAR-C PO SCH (09:58)
[2016-10-02] MEDS: MAG-OX PO SCH (09:59)
[2016-10-02] MEDS: TRENTAL PO SCH ×2 (10:00→13:26)
[2016-10-02] MEDS: LEXAPRO PO SCH (10:00)
[2016-10-02] MEDS: ATIVAN IV PRN ×4 (10:00→15:24)
[2016-10-02] MEDS: LIORESAL PO SCH ×2 (10:01→13:26)
[2016-10-02] MEDS: XANAX PO SCH (10:01)
[2016-10-02 12:22] VITALS: BP 105/71
[2016-10-02] MEDS: PHENERGAN IV PRN (12:23)
--- NOTE | 2016-10-03 13:43 | DISCHARGE SUMMARY ---
ADMISSION DATE: 09/25/2016 DISCHARGE DATE: 10/02/2016 CONSULTATIONS: Dr. Costa with Gastroenterology. PERTINENT PROCEDURES: Abdominal ultrasound showed severe fatty liver, hepatomegaly. DISCHARGE DIAGNOSES: 1. Acute alcoholic hepatitis. [facility] was consulted as well as [facility]. They have offered her outpatient facilities. [facility] to try to help with rehabilitation placement. 2. Severe fatty liver disease with hepatomegaly secondary to alcohol abuse. Patient has been educated regarding sustaining abstinence from alcohol abuse. On admission, patient was maintained on banana bag, multivitamins, and IV fluids, watched closely for delirium tremens, and given p.r.n. medication for agitation as well as proton pump inhibitors. 3. Multiple mineral and vitamin deficiencies, hypophosphatemia, hypokalemia, hypomagnesemia, and hypocalcemia secondary to alcohol bingeing, stable. 4. Anemia, likely due to gastritis. Continue proton pump inhibitor. Patient is to avoid non- steroidal anti-inflammatory drugs. Hemoglobin and hematocrit have been relatively stable. 5. Vitamin D deficiency. Continue with supplementation. 6. Signs of alcohol withdrawal on presentation. The patient was given Librium and Ativan as well as baclofen to help with cravings. 7. Anxiety and depression history. Continue home medications. HOSPITAL COURSE: Ms. Joshi is an unfortunate 35-year-old female who has a history of seizures, hypertension, and questionable for hepatitis A. She presented to [facility] with complaints of nausea, vomiting, black emesis, abdominal pain, feeling jittery, blurry vision, and increased heart rate. She states she is a zfsh-[id number]-w-day vodka drinker. Two days ago, she attempted to stop. She began back drinking the day before her admission. During the 2 days that she attempted to stop, she began having nausea and vomiting that turned to a blackish-brown emesis with associated abdominal pain, tenderness primarily in the epigastric area. Workup in the ED revealed a heart rate of 126, hemoglobin and hematocrit of 10 and 31. Potassium was 2.3 and total bilirubin was 11.3. AST was 376 and ALT was 153. Alkaline phosphatase was 423. Serum alcohol level was 40. Urine drug screen was positive for tricyclics and benzodiazepines, so patient was transferred to [facility] for further evaluation and treatment, and a GI consultation. She was put on the C[facility] floor with telemetry, held n.p.o., and monitored serial hemoglobin and hematocrit every 6 hours. She was placed on IV fluids as well as given IV potassium, Protonix drip, and Ativan p.r.n. as well as a banana bag, and monitored closely for delirium tremens. Someone with GI counseled the patient to quit alcohol completely. Again, in the meantime, she was continued on banana bag, multivitamins, and IV fluids, and avoided any hepatotoxic drugs. Her hepatitis panel was negative. She was continued on her PPI. Electrolytes were replenished as needed on a daily basis. [facility] D[facility] was consulted to see about getting the patient into [facility]. [facility] did come and speak with the patient. They have given her information to contact the [facility] so she can find a state facility to check herself into. The patient is self-pay. After several days of being in the hospital, Ms. Joshi does refer to doing better. Her nausea and diarrhea have improved. The patient is appropriate for discharge today. She will be discharged home. She was, again, counseled daily to quit alcohol completely and to follow up with [facility]'s recommendations and get herself checked into a rehabilitation facility as well as to continue medications. VITAL SIGNS AT TIME OF DISCHARGE: Temperature was 98.5 degrees, heart rate 94, respirations 16, blood pressure 101/58, O2 is 99% on room air. DISCHARGE MEDICATIONS: As per Dr. Zarco. DISCHARGE DIET: Regular. FOLLOWUP: The patient is being discharged home. She is to follow up as [facility] has instructed, to check herself into a state facility rehabilitation. Patient is to quit alcohol completely. She can return to the emergency department for any worsening of symptoms. Patient can follow up with Dr. Costa as well as maintain a primary care physician. DISCHARGE TIME: Thirty minutes. Dictated by JOSUE Andrew for Chago Zarco MD cc: Chago Zarco MD
== END 2016-10-02 16:32 | disposition home or self-care (01) ==
LOC: P.ED 12:34 → 3S 17:38 → SUATTDRO 17:38 → 3S 17:47 → 4N 10-02 14:22
PROVIDERS: ATTEND Internal Medicine

== ENCOUNTER 2016-10-02 17:37 | Inpatient (IN) ==
[2016-10-02 18:12] LABS: BASO% 1.5 % (0.0-0.8); EOS# 0.04 X1000 (0.0-0.7); EOS% 0.6 % (0.0-10.0); HEMATOCRIT 33.7 % (37.0-47.0); HEMOGLOBIN 10.4 g/dL (12.0-16.0); IMM GRAN# 0.03 X1000 (0.0-0.04); IMM GRAN% 0.4 % (0.0-0.5); LYMPH# 1.45 X1000 (1.2-3.4); LYMPH% 21.4 % (20.5-51.1); MANUAL DIFF NEEDED? NO; MCH 34.8 PG (27-31); MCHC 30.9 g/dL (33-37); MCV 112.7 FL (81-99); MONO# 0.77 X1000 (0.11-0.59); MONO% 11.4 % (1.7-9.3); MPV 10.2 FL (7.4-10.4); NEUT% 64.7 % (42.2-75.2); PLT 440 X1000 (130-400); RBC 2.99 XMIL (4.2-5.4)
[2016-10-02 18:26] LABS: URINE CULTURE NEEDED? NO; URINE SOURCE CLEAN CATCH
[2016-10-02 18:29] LABS: BILIRUBIN URINE MODERATE (NEGATIVE); BLOOD URINE NEGATIVE (NEGATIVE); COLOR YELLOW; GLUCOSE URINE NEGATIVE (NEGATIVE); LEUKOCYTES URINE NEGATIVE (NEGATIVE); NITRITE URINE NEGATIVE (NEGATIVE); PROTEIN URINE 30 mg/dL (NEGATIVE); SP GRAVITY URINE 1.028; TURBIDITY URINE CLEAR (CLEAR); UROBILINOGEN URINE 6 mg/dL (NORMAL)
[2016-10-02 18:32] LABS: UR EPITHELIAL CELLS <10 /HPF (<10); URINE BACTERIA 1+ /HPF; URINE MICRO REVIEW NEEDED? YES; URINE RBC <10 /HPF (<10); URINE WBC <10 /HPF (<10)
[2016-10-02 18:46] LABS: AGAP 14; ALBUMIN 3.2 g/dL (3.5-5.0); ALKALINE PHOSPHATASE 227 U/L (32-104); AMYLASE 82 U/L (20-200); BUN 8 mg/dL (8-22); CALCIUM 8.3 mg/dL (8.8-10.2); CHLORIDE 100 mmol/L (98-107); COSMO 269; GOT 167 U/L (10-30); GPT 75 U/L (10-36); LIPASE 124 U/L (13-60); POTASSIUM 4.2 mmol/L (3.5-5.1); SODIUM 135 mmol/L (136-145); TCO2 21 mmol/L (25-35); TOTAL BILIRUBIN 8.66 mg/dL (0.20-1.00); TOTAL PROTEIN 6.3 g/dL (6.3-8.3)
[2016-10-02 18:47] LABS: URINE CASTS NONE SEEN
[2016-10-02] MEDS ORDERED: ZOFRAN IV ONE (22:12)
[2016-10-02] MEDS ORDERED: ATIVAN IV ONE (22:12)
[2016-10-02] MEDS ORDERED: NS 1,000 ML IV ONE (22:12)
[2016-10-02] MEDS ORDERED: LIBRIUM PO ONE (22:31)
[2016-10-02] MEDS ORDERED: PHENOBARBITAL IV ONE (22:32)
--- NOTE | 2016-10-02 22:44 | ED EKG INTERP ---
This chart was entered by Rustam Erazo Scribe, acting as scribe for Enoc Gaines MD. EKG Interpretation - EKG Time of EKG reading by physician:: 18:20 EKG Read and Signed by:: Enoc Gaines EKG Interpretation (*Must complete 3 of following elements*): Abnormal ( Nonspecific T wave abnormality) Rate: 120 Rhythm: sinus tachycardia This chart was documented by the indicated scribe, (Rustam Erazo Scribe) and accurately reflects the services I performed and decisions made by me, Enoc Gaines MD, as attested by the provider's signature.
[2016-10-03] MEDS ORDERED: THIAMINE IM ONE (00:34)
[2016-10-03] MEDS ORDERED: G.I. COCKTAIL PO ONE (00:34)
[2016-10-03] MEDS ORDERED: TYLENOL PO PRN (00:34)
[2016-10-03 00:57] LABS: MAGNESIUM 2.1 mg/dL (1.5-2.7)
[2016-10-03] MEDS: ATIVAN IV PRN ×7 (01:04→21:47)
[2016-10-03] MEDS: PROTONIX IV SCH ×2 (01:04→11:40)
[2016-10-03] MEDS: LIBRIUM PO SCH ×3 (01:04→16:59)
[2016-10-03] MEDS: SODIUM CHLORIDE 0.9% INJ SCH ×2 (01:04→11:41)
[2016-10-03] MEDS: POTASSIUM CHLORIDE 10 MEQ in NS 1,000 ML IV SCH ×6 (01:22→21:11)
[2016-10-03] MEDS: ZOFRAN IV PRN ×3 (02:52→21:22)
--- NOTE | 2016-10-03 05:24 | EKG Report ---
Test Performed on : 10/02/2016 6:18:18 PM Test Reason : tachycardia Blood Pressure : / mmHG Vent. Rate : 120 BPM Atrial Rate : 120 BPM P-R Int : 126 ms QRS Dur : 068 ms QT Int : 312 ms P-R-T Axes : 049 046 -22 degrees QTc Int : 440 ms Sinus tachycardia. Nonspecific T wave abnormality Abnormal ECG No previous ECGs available Unconfirmed Result
--- NOTE | 2016-10-03 05:52 | HISTORY AND PHYSICAL ---
REASON FOR ADMISSION: Agitation, nausea, vomiting and diarrhea. HISTORY OF PRESENT ILLNESS: The patient a 35-year-old lady who was just discharged today after being admitted for alcohol withdrawal and hepatic liver disease. She was sent home with Xanax and Librium and some other medications, but stated that when she got home, she still felt agitated and sick to her stomach and she said that if she stayed at home, something drastic would have happened to her, being that there was no one at home to care for her. She says she is still having diarrhea which is nonbloody, but the frequency has diminished. She still says she is jittery and stated that she may have a seizure at home without anyone being there. No audiovisual hallucinations. No suicidal attempt. REVIEW OF SYSTEMS: Notable for still vomiting coffee grounds, but she said this has decreased also. She also complains of periumbilical and suprapubic pain which is constant and pulling in nature with no specific aggravating or relieving factors. No radiation. She says she is very thirsty and she has been urinating a lot also in spite of her vomiting and diarrhea. No focal numbness, tingling or neurological complaints. No headaches. No cardiorespiratory complaints. No bleeding from any orifice. A 12 system review is negative except for positive findings noted in HPI. ALLERGIES: No known allergies. MEDICATIONS: She was sent home on the following medications. 1. Lexapro 20 mg daily. 2. Multivitamin tablets twice a day. 3. Loratadine 10 mg daily. 4. Librium 25 mg q.8. 5. Xanax 1 mg in the morning. PAST SURGICAL HISTORY: Negative. SOCIAL HISTORY: Patient used to drink a total of 1 gallon of vodka a day, but says she has not drank since her last admission a few days ago. Patient lives with her mother. Does not smoke or use illicit drugs. PAST MEDICAL HISTORY: 1. Questionable for hepatitis. 2. Seizure. 3. Alcohol withdrawal. 4. Hypertension. FAMILY HISTORY: Dad had pancreatic cancer. No diabetes in the family. Mother had breast cancer. LABORATORY WORK: White count 6000, hemoglobin and hematocrit 10 and 30, MCV 112, platelets 442,000 with normal differential. Sodium 135, glucose 107, calcium 8.3, AST 167, ALT 75, total bilirubin is 8.6, albumin is 3.2, lipase 124, amylase 82. Her last alcohol level is undetected. Urinalysis: Moderate bilirubin and trace ketones. Her last PT/INR a few days ago was normal. PHYSICAL EXAMINATION: VITAL SIGNS: Blood pressure is 118/89, heart rate 112, respirations 27, temperature is 98.1 degrees. She is 97% on room air. GENERAL: She is a young woman who is icteric, anxious and slightly tremulous. She is alert and oriented to person, time with normal mood and affect. HEENT: Head is normocephalic, atraumatic. Eyes, ERIC EOMI. She is icteric, but not pale. ENT and oropharynx examination is grossly normal. NECK: Supple. No JVD or carotid bruit. No thyromegaly. CHEST: Clear to auscultation with good air entry in both lung juárez. CARDIOVASCULAR: First and second heart sounds heard. No gallops, murmurs, rubs. Rhythm is regular. ABDOMEN: Protuberant, soft, with mild suprapubic tenderness, but no rebound or guarding. No mass or organomegaly appreciated. RECTAL: Deferred at this time. EXTREMITIES: No edema, clubbing or peripheral cyanosis. Pulses distally have good volume and are symmetrical in all distal aspects of her extremities. NEUROLOGICAL: Grossly normal. She has fine tremors in outstretched hands. No myoclonus or asterixis noted. SKIN: Has a yellowish tinge to it but otherwise intact. No breakdown. MUSCULOSKELETAL EXAM: Grossly normal. ASSESSMENT: 1. Alcohol withdrawal. 2. Alcoholic pancreatitis. 3. Alcohol with history of alcohol abuse. 4. Alcoholic liver disease. 5. Probable mild alcoholic gastritis. 6. Anemia secondary to chronic inflammation. PLAN: Aggressively hydrate patient. Short-acting IV benzodiazepines such as Ativan which do not require much hepatic function for its metabolic process as opposed to longer acting medications like Librium or Valium. However, I will still keep her on low-dose Librium to smooth out her symptoms. We are just moving out her dosing for alcohol withdrawal. The patient may have mild alcoholic-induced gastritis based on the coffee grounds and we will start her on IV PPIs. We will also give the patient thiamine to rule out thiamine deficiency. The patient did state that she is highly motivated to quit drinking and wants to go to a rehab facility if possible when she is discharged. Her MELD score is 16 and I have told her that if she quits drinking she may have a chance of living a productive life. The patient is visibly concerned and scared about her condition and wants to quit drinking. Social Service should be consulted to get her placed in a detox facility since she is motivated to quit. cc: Lady Tavarez MD
[2016-10-03 07:14] LABS: BASO% 1.3 % (0.0-0.8); EOS# 0.05 X1000 (0.0-0.7); EOS% 0.8 % (0.0-10.0); HEMATOCRIT 29.1 % (37.0-47.0); HEMOGLOBIN 8.8 g/dL (12.0-16.0); IMM GRAN# 0.02 X1000 (0.0-0.04); IMM GRAN% 0.3 % (0.0-0.5); LYMPH# 1.28 X1000 (1.2-3.4); LYMPH% 20.3 % (20.5-51.1); MANUAL DIFF NEEDED? NO; MCH 34.1 PG (27-31); MCHC 30.2 g/dL (33-37); MCV 112.8 FL (81-99); MONO# 0.56 X1000 (0.11-0.59); MONO% 8.9 % (1.7-9.3); MPV 10.2 FL (7.4-10.4); NEUT% 68.4 % (42.2-75.2); PLT 350 X1000 (130-400); RBC 2.58 XMIL (4.2-5.4)
[2016-10-03 07:32] LABS: AGAP 10; ALBUMIN 2.8 g/dL (3.5-5.0); ALKALINE PHOSPHATASE 182 U/L (32-104); BUN 6 mg/dL (8-22); CALCIUM 7.6 mg/dL (8.8-10.2); CHLORIDE 107 mmol/L (98-107); COSMO 273; GOT 137 U/L (10-30); GPT 61 U/L (10-36); LIPASE 113 U/L (13-60); POTASSIUM 3.8 mmol/L (3.5-5.1); SODIUM 138 mmol/L (136-145); TCO2 21 mmol/L (25-35); TOTAL BILIRUBIN 7.22 mg/dL (0.20-1.00); TOTAL PROTEIN 5.2 g/dL (6.3-8.3)
[2016-10-03] MEDS: CENTRUM SILVER PO SCH ×2 (09:59→21:12)
[2016-10-03] MEDS: LEXAPRO PO SCH (09:59)
[2016-10-03] MEDS: ICAR-C PO SCH ×2 (09:59→21:12)
--- NOTE | 2016-10-03 14:37 | PROGRESS NOTE ---
DATE: 10/03/2016 SUBJECTIVE: This morning Ms. Joshi referred to be doing a little bit better. Shaking has improved and nausea and vomiting has also slightly improved. According to her, she just woke up from sleeping and has not vomited. She refers that yesterday she was not able to get her medication. However she just felt she was kind of too weak to be alone at home and she was having significant symptoms of possible withdrawal so she decided to come back a couple hours after she was discharged. OBJECTIVE: Vital signs: Blood pressure is 123/73, pulse of 99, respiration is 20, temperature is 98.3 degrees. General Exam: Ms. Joshi is a 35-year-old female. She is in bed, is not in any distress. HEENT: Mucosa is pink and moist. Anicteric. Acyanotic. There is 1+ icterus on the sclera. Neck: Supple. Chest: Good air entry bilaterally. No crepitations. No rhonchi. Cardiovascular: Regular rate and rhythm. Abdomen: Slightly distended but nontender. Bowel sounds are present. Extremities: No pedal edema. NEWS CAMERA PERSON: Patient is alert and oriented. No focal neurological deficit. LABORATORY DATA: WBC is 6.23, hemoglobin is 8.8, platelet count of 350,000. Chemistry reviewed, sodium 138, potassium 3.8, chloride 107, bicarb is 21, total bilirubin is down to 7.25, AST is down to 137, ALT is down to 61, alkaline phosphatase is down to 182, lipase is 113. ASSESSMENT/PLAN: 1. Alcohol withdrawal. 2. Mild pancreatitis. 3. History of alcohol abuse. 4. Alcohol-induced fatty liver disease. 5. Possible gastritis. So in general Ms. Joshi seems to be doing a little better today. All her liver enzymes are trending in the right direction. We are going to continue with the current benzos for the withdrawal. She is wanting to eat so we will start her on some liquid diet/hepatic diet to see if she tolerates it. We will continue with the hydration. We anticipate to discharge the patient home very soon once we have everything arranged for her to continue home care. cc: Chago Zarco MD
[2016-10-03] MEDS: LIORESAL PO SCH (16:59)
[2016-10-03] MEDS: NEURONTIN PO SCH (16:59)
[2016-10-04] MEDS: LIBRIUM PO SCH ×3 (00:40→21:31)
[2016-10-04] MEDS: SODIUM CHLORIDE 0.9% INJ SCH (00:43)
[2016-10-04] MEDS: PROTONIX IV SCH ×2 (00:43→12:50)
[2016-10-04] MEDS: ATIVAN IV PRN ×5 (00:43→18:12)
[2016-10-04] MEDS: POTASSIUM CHLORIDE 10 MEQ in NS 1,000 ML IV SCH (02:32)
[2016-10-04] MEDS: CENTRUM SILVER PO SCH ×2 (09:06→21:31)
[2016-10-04] MEDS: LEXAPRO PO SCH (09:06)
[2016-10-04] MEDS: LIORESAL PO SCH ×4 (09:06→16:00)
[2016-10-04] MEDS: NEURONTIN PO SCH ×2 (09:06→16:00)
[2016-10-04] MEDS: ICAR-C PO SCH ×2 (09:06→21:31)
[2016-10-04 10:41] LABS: EOS# 0.04 X1000 (0.0-0.7); EOS% 0.6 % (0.0-10.0); HEMATOCRIT 32.1 % (37.0-47.0); HEMOGLOBIN 9.8 g/dL (12.0-16.0); IMM GRAN# 0.04 X1000 (0.0-0.04); IMM GRAN% 0.6 % (0.0-0.5); LYMPH# 1.29 X1000 (1.2-3.4); LYMPH% 20.8 % (20.5-51.1); MANUAL DIFF NEEDED? NO; MCH 34.8 PG (27-31); MCHC 30.5 g/dL (33-37); MCV 113.8 FL (81-99); MONO# 0.59 X1000 (0.11-0.59); MONO% 9.5 % (1.7-9.3); MPV 10.1 FL (7.4-10.4); NEUT% 67.5 % (42.2-75.2); PLT 394 X1000 (130-400); RBC 2.82 XMIL (4.2-5.4)
[2016-10-04 11:51] LABS: AGAP 10; ALBUMIN 2.7 g/dL (3.5-5.0); ALKALINE PHOSPHATASE 196 U/L (32-104); BUN 3 mg/dL (8-22); CHLORIDE 107 mmol/L (98-107); COSMO 276; GOT 147 U/L (10-30); GPT 74 U/L (10-36); SODIUM 140 mmol/L (136-145); TCO2 23 mmol/L (25-35); TOTAL BILIRUBIN 6.78 mg/dL (0.20-1.00); TOTAL PROTEIN 5.1 g/dL (6.3-8.3)
[2016-10-04 11:52] LABS: POTASSIUM 4.9 mmol/L (3.5-5.1)
[2016-10-04] MEDS: ZOFRAN IV PRN (11:54)
--- NOTE | 2016-10-04 14:44 | PROGRESS NOTE ---
DATE: 10/04/2016 SUBJECTIVE: Today Ms. Joshi refers to be doing a little better. Continues to complain of some epigastric and abdominal pain. OBJECTIVE: Vital signs: Blood pressure is 129/81, pulse of 93. Respiration is 20. Temperature is 98.5. General exam: Ms. Joshi is a 35-year-old female. She was in bed, did not seem to be in any distress. Mucosa is pink and moist. 2+ icteric. Chest: Good air entry bilaterally. No crepitations. Cardiovascular: Regular rate and rhythm. Abdomen: Distended, mildly tender in the right upper quadrant and left. There is positive hepatosplenomegaly. Extremities: No pedal edema. Central nervous system: Patient is alert and oriented x4. LABORATORY DATA: WBC is 6.19. Hemoglobin is 9.8. Platelet count is 394. Chemistry is reviewed. Significant is the liver functions. Total bilirubin is down to 6.78. AST is 147. ALT is 74, alkaline phosphatase of 195. ASSESSMENT: 1. Alcohol withdrawal. Patient is doing a lot better. Symptoms have been improved. Will continue with the Baclofen, the gabapentin, and cut down on the long acting benzodiazepines. 2. Mild pancreatitis. Patient is doing fine, is tolerating the p.o. diet. We will therefore discontinue the IV fluids since she seems to be having ascites. 3. History of alcohol abuse. 4. Hepatosplenomegaly, likely due to fatty liver disease with possible portal hypertension. 5. Anemia, stable. 6. Mild gastritis. Patient will continue on proton pump inhibitor. PLAN: In general, I think Ms. Joshi is fine. She does not show any remarkable signs of withdrawal at this time. We are going to continue with the Baclofen. Will increase the gabapentin to 200 three times per day. I will cut down on the Librium to 25 q. 12, maintain her on the lorazepam. Will also add Bentyl p.r.n. for abdominal pain. Will continue with her PPI for now. cc: Chago Zarco MD [facility]
[2016-10-04] MEDS: BENTYL PO SCH (16:00)
--- NOTE | 2016-10-04 17:55 | PROGRESS NOTE ---
DATE: 10/04/2016 SUBJECTIVE: Was called to the patient's bedside, she was exhibiting altered mental status. The nurses reported that she had shaking movement consistent with seizures and that the patient is lethargic and not very responsive. After examining the patient she indeed is lethargic, she will follow commands. She has globalized weakness, nothing focal and she is certainly confused and mumbling incoherently. She was able to tell me her name. We checked stat bedside glucose which was within normal limits and all of her vital signs are within normal limits. Her O2 saturation is adequate. After looking at her history she has a reported history of seizures but is not on any medication. As such, we are going to order a stat head CT and ABG and move her to the ICU and so we can get a better handle on what is going. PHYSICAL EXAMINATION: General: This is an overweight female lying in hospital bed lethargic and minimally responsive. Neurologic: The patient responds to tactile stimulus and her speech pattern is incoherent and mumbling. She is able to squeeze my hands and wiggle her toes but this is globally weak. HEENT: Head atraumatic and normocephalic. Her pupils are equal bilaterally and sluggish to light. Her sclerae is anicteric. Oral mucosa is dry. Trachea is midline. Chest: Clear to auscultation bilaterally. CV: Regular rate and rhythm. S1-S2 is noted. GI: Soft, nondistended, nontender. Bowel sounds are positive. Extremities: Trace edema. Pulses are palpable bilaterally. PLAN: We are going to place the patient in ICU for close observation, check a head CT and ABG. She has had labs done this morning. Please see Dr. Zarco's progress note earlier today. She has acute alcoholic hepatitis and it is unclear if the seizures are truly a seizure disorder or are they alcohol withdrawal seizures. Ativan has been ordered for p.r.n. seizures but for now we will withhold any medications as she is lethargic and likely postictal. Further recommendations to follow. Dictated by JOSUE Young for Chago Zarco MD cc: JOSUE Young MD
--- NOTE | 2016-10-04 18:00 | Diag Imaging Result Document ---
PROCEDURE NAME: HEAD W/O CONTRAST - 10/04/2016 CT BRAIN WITHOUT CONTRAST: FINDINGS: Dose reduction protocol. No parenchymal hemorrhage. No epidural or subdural hematoma. No subarachnoid hemorrhage. No mass identified on this noncontrasted exam. No hydrocephalus. No sinus opacification. IMPRESSION: No hemorrhage. Negative brain CT without contrast. A preliminary report was given at 5:45 PM.
[2016-10-04 18:11] LABS: ALLEN TEST NO; BE -0.2 mmoll (-3.0-3.0); BLOOD TYPE ARTERIAL; METHB 1.5 % (0.0-1.5); O2(CT) 11.9 mL/dL (15.0-23.0); PCO2(98.6) 34 mmHg (35-45); PO2(98.6) 69 mmHg (60-100); SAMPLE BLOOD; SAO2 98.5 % (95.0-100.0); THB 8.9 g/dL (11.5-17.4); pH(98.6) 7.45 (7.35-7.45)
[2016-10-04 18:13] LABS: DRAW SITE R BRACHIAL; MODALITY ROOM AIR
[2016-10-04] MEDS ORDERED: ULTRAM PO ONE (21:42)
[2016-10-05] MEDS: ATIVAN IV PRN ×7 (00:25→22:10)
[2016-10-05] MEDS: PROTONIX IV SCH ×2 (02:19→12:04)
[2016-10-05] MEDS: BENTYL PO SCH ×3 (06:30→16:16)
[2016-10-05 06:52] LABS: AGAP 12; ALBUMIN 2.7 g/dL (3.5-5.0); ALKALINE PHOSPHATASE 181 U/L (32-104); BUN 4 mg/dL (8-22); CALCIUM 8.3 mg/dL (8.8-10.2); CHLORIDE 104 mmol/L (98-107); COSMO 272; GOT 141 U/L (10-30); GPT 75 U/L (10-36); MAGNESIUM 1.9 mg/dL (1.5-2.7); SODIUM 138 mmol/L (136-145); TCO2 22 mmol/L (25-35); TOTAL BILIRUBIN 6.07 mg/dL (0.20-1.00); TOTAL PROTEIN 5.6 g/dL (6.3-8.3)
[2016-10-05 07:22] LABS: BASO% 1.2 % (0.0-0.8); EOS# 0.06 X1000 (0.0-0.7); HEMATOCRIT 31.1 % (37.0-47.0); HEMOGLOBIN 9.7 g/dL (12.0-16.0); IMM GRAN# 0.02 X1000 (0.0-0.04); IMM GRAN% 0.3 % (0.0-0.5); LYMPH# 1.42 X1000 (1.2-3.4); LYMPH% 24.3 % (20.5-51.1); MANUAL DIFF NEEDED? YES; MCHC 31.2 g/dL (33-37); MCV 112.3 FL (81-99); MONO# 0.56 X1000 (0.11-0.59); MONO% 9.6 % (1.7-9.3); MPV 10.4 FL (7.4-10.4); NEUT% 63.6 % (42.2-75.2); PLT 410 X1000 (130-400); RBC 2.77 XMIL (4.2-5.4)
[2016-10-05 08:11] LABS: BANDS 14 % (0-1); LYMPHS 24 % (21-51); MONO 2 % (1-9)
[2016-10-05] MEDS: LIBRIUM PO SCH ×2 (08:46→20:01)
[2016-10-05] MEDS: LIORESAL PO SCH ×3 (08:46→16:16)
[2016-10-05] MEDS: CENTRUM SILVER PO SCH ×2 (08:46→20:01)
[2016-10-05] MEDS: LEXAPRO PO SCH (08:46)
[2016-10-05] MEDS: ICAR-C PO SCH ×2 (08:46→20:01)
[2016-10-05] MEDS: NEURONTIN PO SCH ×3 (08:46→16:16)
[2016-10-05] MEDS: SODIUM CHLORIDE 0.9% INJ SCH (12:04)
--- NOTE | 2016-10-05 17:22 | PROGRESS NOTE ---
DATE: 10/05/2016 SUBJECTIVE: Today Ms. Joshi referred to be doing a whole lot better in the ICU. She is tolerating a hepatic diet. My understanding is that last evening Ms. Joshi had an episode whereby she was nonresponsive and her head was jerking back and forth. According to her, she could hear people around her talking to her but she just could not respond. The patient was transferred to the ICU over concern of having seizures, for close neurological observation. OBJECTIVE: Vital Signs: Today blood pressure is 108/66, pulse 88, respirations 16, temperature is 97.8 degrees. General: Ms. Joshi is a 35-year-old female. She looks pretty jaundiced. She is in bed, not in any distress. HEENT: Mucosa is pink and moist. Anicteric. Acyanotic. Neck: Supple. Chest: Good air entry bilaterally. No crepitations. No rhonchi. Cardiovascular: Regular rate and rhythm. Abdomen: Soft. There is hepatosplenomegaly palpated. Extremities: No pedal edema. INDUSTRIAL RELATIONS OFFICER: Patient is alert and oriented x4. There is no focal neurological deficit. LABORATORY DATA: WBC is 5.85, hemoglobin 9.7, platelet count of 410,000, 14% of bands on the peripheral smear. Sodium is 138, potassium is 4.0, chloride is 104, bicarb is 22, total bilirubin is 6.07, AST is 141, AST 75, alkaline phosphatase is 181. ASSESSMENT: 1. Alcohol withdrawal. 2. Mild pancreatitis. Patient is tolerating her diet. 3. History of alcohol abuse. 4. Abdominal pain, likely secondary to the alcoholic gastritis as well as stretched from the hepatosplenomegaly. 5. Anemia, stable. 6. Suspected seizures from alcohol withdrawal. I do not really think this was an episode of a seizure. The patient was observed, however, in the ICU for more than 24 hours and there was no recurrence of the episode. We will transfer her back out of the ICU to a regular floor whilst we plan a better and more safer way for her discharge. cc: Chago Zarco MD
[2016-10-05] MEDS ORDERED: ULTRAM PO ONE (20:10)
[2016-10-06] MEDS: ATIVAN IV PRN ×2 (04:45→10:11)
[2016-10-06] MEDS: PROTONIX IV SCH (05:51)
[2016-10-06 07:40] VITALS: BP 119/74
[2016-10-06] MEDS: BENTYL PO SCH ×2 (08:02→10:14)
[2016-10-06] MEDS: ICAR-C PO SCH (08:02)
[2016-10-06] MEDS: LIBRIUM PO SCH (08:02)
[2016-10-06] MEDS: LIORESAL PO SCH (08:02)
[2016-10-06] MEDS: NEURONTIN PO SCH (08:02)
[2016-10-06] MEDS: LEXAPRO PO SCH (08:03)
[2016-10-06] MEDS: CENTRUM SILVER PO SCH (08:03)
[2016-10-06 08:09] LABS: AGAP 12; ALBUMIN 2.8 g/dL (3.5-5.0); ALKALINE PHOSPHATASE 175 U/L (32-104); BUN 8 mg/dL (8-22); CALCIUM 8.3 mg/dL (8.8-10.2); CHLORIDE 103 mmol/L (98-107); COSMO 276; GOT 141 U/L (10-30); GPT 76 U/L (10-36); POTASSIUM 4.2 mmol/L (3.5-5.1); SODIUM 139 mmol/L (136-145); TCO2 24 mmol/L (25-35); TOTAL BILIRUBIN 5.36 mg/dL (0.20-1.00); TOTAL PROTEIN 5.5 g/dL (6.3-8.3)
[2016-10-06] MEDS ORDERED: ATIVAN PO ONE (12:33)
--- NOTE | 2016-10-07 11:30 | DISCHARGE SUMMARY ---
ADMISSION DATE: 10/02/2016 DISCHARGE DATE: 10/06/2016 CONSULTATIONS: None. PERTINENT PROCEDURES: Head CT showed no hemorrhage. Negative brain CT without contrast. DISCHARGE DIAGNOSES: 1. Alcohol withdrawal. Patient discharged on Librium. As per her last discharge, [facility] gave information to the patient about rehabilitation facilities with the [facility]. The patient is aware that she will need to contact these facilities herself. 2. Mild pancreatitis. Patient is tolerating her diet. 3. History of alcohol abuse. The patient on previous admission was spoken to by [facility]. Again, they have given her information for [facility] programs for rehabilitation. 4. 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 5. Anemia, stable. 6. Suspected seizure from alcohol withdrawal. Patient was monitored in the intensive care unit for 24 hours with no reoccurrence. She was transferred back to a regular floor with no more episodes. HOSPITAL COURSE: Ms. Joshi is a 35-year-old, female who was discharged on 10/02/2016 and came back to the hospital on the same day, 10/02/2016, after being admitted for alcohol withdrawal and hepatic liver disease. She was sent home with Xanax and Librium, along with others but she stated that when she got home, she felt agitated and sick to her stomach because she did not get her medications filled secondary to living with her mother who was also in the hospital and not having any money for medications. She felt something drastic would happen if she did not come back to the ED with nobody at home to care for her. She still reported diarrhea which was nonbloody. Frequent had diminished. She still states she is jittery and that she may have a seizure home without anyone being there. No audiovisual hallucinations. No suicide intent. She was also still vomiting some coffee-grounds emesis but again has diminished since her discharge. The patient was readmitted for alcohol withdrawal. Continued on IV hydration, p.r.n. Ativan and Librium to help with her symptoms. Continued on IV PPIs. The patient did state that she was still highly motivated to go to rehab. Those options are still open for her. She will just need to contact the [facility] facilities that Carson had recommended. The patient did have a normal head CT. There was a question of a seizure. Patient was moved and observed in the ICU for 24 hours without any reoccurrences. She is tolerating her diet. She will be discharged back home today. VITAL SIGNS: Temperature is 98.5 degrees, heart rate 98, respirations 18, blood pressure is 119/74, O2 is 99% on room air. DISCHARGE MEDICATIONS: 1. Xanax 1 mg p.o. q.a.m. 2. Baclofen 10 mg p.o. t.i.d. 3. Librium 25 mg p.o. q.8 hours. 4. Lexapro 20 mg p.o. daily. 5. Neurontin 200 mg p.o. t.i.d. 6. Icar-C 1 each p.o. b.i.d. 7. Claritin 10 mg p.o. daily. 8. Centrum Silver 1 each p.o. b.i.d. FOLLOWUP: The patient is being discharged back home with her mother. Patient will need to follow up with Dr. Costa as indicated, as well as follow up with the facilities that [facility] has set the patient up with. She will need to be compliant with getting her medications as well as taking them. It has also been discussed with her at length against her need to abstain from any alcohol use. Patient can return to the ED for any worsening of symptoms. DISCHARGE TIME: 30 minutes. Dictated by JOSUE Andrew for Chago Zarco MD cc: Chago Zarco MD
--- NOTE | 2016-10-15 19:06 | PROVIDER DOCUMENTATION ---
This chart was entered by Rustam Erazo Scribe, acting as scribe for Enoc Gaines MD. [id number] Abuse/Overdose - General Chief Complaint: Req. Detox Stated Complaint: ABD PAIN/LIVER,VOMITING Time Seen by Provider: 10/02/16 19:57 Source: patient Allergies/Adverse Reactions: Allergies Allergy/AdvReac Type Severity Reaction Status Date / Time No Known Allergies Allergy Verified 10/02/16 19:21 Home Medications: Home Medication List Medication Instructions Recorded Confirmed Last Taken Type Escitalopram [Lexapro] 20 mg PO DAILY 09/27/16 10/02/16 10/02/16 History Loratadine [Claritin] 10 mg DAILY 09/27/16 10/02/16 09/23/16 History Alprazolam [Xanax] 1 mg PO QAM #10 tablet 10/02/16 10/02/16 10/02/16 Rx Chlordiazepoxide [Librium] 25 mg PO Q8H #30 capsule 10/02/16 10/02/16 Unknown Rx Iron Carbonyl/Ascorbic Acid 1 each PO BID #90 tablet 10/02/16 10/02/16 Unknown Rx [Icar-C] Multivitamins/Minerals [Centrum 1 each PO BID #60 tablet 10/02/16 10/02/16 Unknown Rx Silver] Baclofen [Lioresal] 10 mg PO TID #60 tablet 10/06/16 Unknown Rx Gabapentin [Neurontin] 200 mg PO TID #60 capsule 10/06/16 Unknown Rx - History of Present Illness-Drug/Alcohol Nature of Presenting Problem: Pt is a 35 yof who presents to ER via EMS with CC of alcohol withdrawals. Pt reports hx of alcoholism and reports that she was discharged today from [facility] after being admitted for similar sxs. Pt reports that she returns tonight after realizing that she was not ready for discharge from hospital this afternoon and complains of N/V (black emesis), abdominal pain, and generalized tremors. Pt reports that she did not get her rx filled that she was given because she was not ready to be discharged and wanted to come back to hospital. This episode of drinking or use began:: other (Pt's LIVAN is 0. Pt returns with withdrawal sxs) Severity: reports: severe Psychiatric Complaints: reports: rapid pulse, tremor Associated Symptoms: reports: anxiety, fatigue, muscle aches, nausea, swelling/ mass in abdomen, vomiting, weakness, trouble walking. denies: arm pain, back/ neck pain, chest pain, constipation, cough, diaphoresis, diarrhea, dizziness, EENT symptoms, fever/chills, genitourinary problems, headaches, heartburn, joint pain, loss of appetite, malaise, sinus congestion/drainage, rash, seizure , shortness of breath, sensory/motor loss, pain with inspiration, syncope Any injuries associated with this episode of intoxication?: No Similar Symptoms Previously?: Yes Recently seen or treated by another doctor?: Yes - Detox/Hospitalizations Previous detox/rehab admissions?: Yes Date of last hospitalization?: 09/25/16 (discharged earlier today) Where was last hospitalization?: [facility] Currently enrolled in a Methadone Program?: No Review of Systems - Adult - REVIEW OF SYSTEMS - ADULT Constitutional: reports: chills, fatique. denies: fever, night sweats, weight gain, weight loss Eyes: reports: no symptoms reported Ears, Nose, Mouth & Throat: reports: no symptoms reported Cardiovascular: reports: no symptoms reported Respiratory: reports: no symptoms reported Gastrointestinal: reports: abdominal pain, nausea, vomiting. denies: hematemesis, constipation, diarrhea, difficulty swallowing, frequent heartburn, poor appetite, rectal bleeding Genitourinary: reports: no symptoms reported Musculoskeletal: reports: muscle aches, muscle weakness. denies: bone pain, back pain, frequent leg cramps, joint pain, joint swelling, neck pain Integumentary: reports: no symptoms reported Neurological: reports: tremors. denies: ataxia, dizziness/vertigo, headache/ migraines, loss of balance, numbness, paresthesia, seizure, slurred speech, syncope Psychiatric: reports: no symptoms reported Endocrine: reports: no symptoms reported Hematologic/Lymphatic: reports: no symptoms reported Allergic/Immunologic: reports: no symptoms reported All Other Systems: Reviewed and Negative Past History - Adult - PAST MEDICAL HISTORY-ADULT Review of Records: reports: Nursing Assessment Review, Medications Reviewed - IMMUNIZATION STATUS Childhood Immunizations: See Nurse Assessment Flu Vaccine: See Nurse Assessment - FAMILY HISTORY Family History: reviewed, not pertinent Physical Exam-General - PHYSICAL EXAM-ADULT Initial Vital Signs Reviewed: Yes - CONSTITUTIONAL General Appearance: appears well, alert, moderate distress, anxious - EYES Eyes: FUN, scleral icterus, other (constricted pupils bilaterally). negative: pink conjunctivae - HEAD, EARS, NOSE, MOUTH & THROAT HENMT: normocephalic/atraumatic, moist mucous membranes, normal ENT inspection - NECK Neck: non-tender, full range of motion, supple, normal inspection. negative: C- spine tenderness, limited range of motion, lymphadenopathy - RESPIRATORY Respiratory: chest non-tender, lungs clear, normal breath sounds, no pleuratic chest pain, no respiratory distress, no accessory muscle use. negative: wheezing - CARDIOVASCULAR Cardiovascular: normal peripheral pulses, tachycardia. negative: regular rate, rhythm, irregularly irregular - GASTROINTESTINAL (ABDOMEN) Abdominal Exam: normal bowel sounds, soft, tenderness, hepatomegaly. negative: non tender, no organomegaly, no pulsatile mass - MUSCULOSKELETAL Back Exam: normal inspection, no CVA tenderness, no vertebral tenderness. negative: CVA tenderness, decreased range of motion, ecchymosis, vertebral tenderness Extremity: normal range of motion, non-tender, normal gait, normal inspection, no pedal edema, no calf tenderness, normal capillary refill. negative: deformity, erythema, inflammation, swelling, tenderness - SKIN Integumentary: normal turgor, warm/dry, jaundice. negative: normal color, abrasion(s), diaphoresis, ecchymosis, erythema, swelling, tenderness, warm - NEUROLOGIC Neurologic: scientific systems analyst II-XII nml as tested, grossly normal. negative: no motor/ sensory deficits (generalized tremors), facial droop, focal weakness, motor weakness, sensory deficit - PSYCHIATRIC Psych/Mental Status: normal thought content, normal thought process, oriented x 3, anxious, disheveled. negative: normal mood/affect Progress - PLAN OF CARE/RESULTS Progress/Plan/Lab Results: Orders Category Date Time Status Admit - [facility] - [facility] Routine AdmDCTranf 10/03/16 00:34 Ordered Activity - Up with Assistance ORDERED Care 10/03/16 00:34 Active Apply Mechanical Device [QM] ORDERED Care 10/03/16 00:34 Completed Intake and Output-Strict ORDERED Care 10/03/16 00:34 Active Saline Loc DIRECTED Care 10/02/16 17:46 Completed Vital Signs Order Q 4-HR ASSESS Care 10/03/16 00:34 Active Social Service Consult Routine Cons 10/02/16 22:42 Active NPO Diet 10/02/16 17:46 Completed ALCOHOL BLOOD Stat Lab 10/02/16 20:08 Completed AMMONIA [CHEM] Stat Lab 10/02/16 17:54 Completed AMYLASE [CHEM] Stat Lab 10/02/16 17:54 Completed CBC WITH DIFF [HEME] Routine Lab 10/03/16 06:43 Completed CBC WITH ELECTRONIC DIFF [HEME] Stat Lab 10/02/16 17:54 Completed COMPREHENSIVE METABOLIC PANEL [CHEM] Routine Lab 10/03/16 06:43 Completed COMPREHENSIVE METABOLIC PANEL [CHEM] Stat Lab 10/02/16 17:54 Completed LIPASE [CHEM] Routine Lab 10/03/16 06:43 Completed LIPASE [CHEM] Stat Lab 10/02/16 17:54 Completed MAGNESIUM [CHEM] Stat Lab 10/03/16 00:34 Completed PHOSPHORUS [CHEM] Stat Lab 10/03/16 00:34 Completed URINALYSIS W/POSS RFLX CULT-1 [URINALYSIS] Stat Lab 10/02/16 18:06 Completed URINE MANUAL MICROSCOPIC [URINALYSIS] Stat Lab 10/02/16 18:06 Completed 0.9% Sodium Chloride Inj [Ns] 1,000 ml Med 10/03/16 00:34 Discontinued Potassium Chloride 10 meq IV 200 mls/hr 0.9% Sodium Chloride Inj [Ns] 1,000 ml Med 10/02/16 22:12 Discontinued IV 999 mls/hr Acetaminophen [Tylenol] Med 10/03/16 00:34 Discontinued 650 mg PO Q6H PRN PRN Chlordiazepoxide [Librium] Med 10/02/16 22:31 Discontinued 25 mg PO NOW ONE Chlordiazepoxide [Librium] Med 10/03/16 00:34 Discontinued 25 mg PO Q8H Escitalopram [Lexapro] Med 10/03/16 09:00 Discontinued 10 mg PO DAILY Iron Carbonyl/Ascorbic Acid [Icar-C] Med 10/03/16 09:00 Discontinued 1 each PO BID Lido/Cole Alk/Al&mg Hydrox [G.i. Cocktail] Med 10/03/16 00:34 Discontinued 30 ml PO NOW ONE Lorazepam [Ativan] Med 10/02/16 22:12 Discontinued 2 mg IV NOW ONE Lorazepam [Ativan] Med 10/03/16 00:34 Discontinued 2 mg IV Q2H PRN PRN Multivitamins/Minerals [Centrum Silver] Med 10/03/16 09:00 Discontinued 1 each PO BID Ondansetron [Zofran] Med 10/02/16 22:12 Discontinued 4 mg IV NOW ONE Ondansetron [Zofran] Med 10/03/16 00:34 Discontinued 4 mg IV Q4H PRN PRN Pantoprazole [Protonix] Med 10/03/16 00:34 Discontinued 40 mg IV Q12H Phenobarbital Med 10/02/16 22:32 Discontinued 130 mg IV NOW ONE Sodium Chloride 0.9% Med 10/03/16 00:34 Discontinued 10 ml INJ DIRECTED Thiamine Med 10/03/16 00:34 Discontinued 200 mg IM NOW ONE Telemetry [OM.EQ] Routine Oth 10/03/16 00:34 Active EKG [EKG] Stat Ther 10/02/16 18:16 Draft Transfer/Admit Order [TRANSFER] Routine Transfer 10/02/16 22:24 Completed Result Diagrams: 10/05/16 06:10 10/06/16 06:45 - CONSULTS/PCP/HOSPITALIST Notification #1 *Consult/PCP/Hospitalist*: Dr. Tavarez (Hospitalist) Time Discussed: 22:00 Consult Disposition: Admit Departure - Departure Time of Disposition Decision: 22:00 DIAGNOSIS: Alcohol withdrawal syndrome Disposition: ADMITTED INPATIENT 09 Certified Medical Emergency: Emergent Condition: Stable - Critical Care Note This patient required my direct & personal management of CC.: No This chart was documented by the indicated scribe, (Rustam Erazo Scribe) and accurately reflects the services I performed and decisions made by me, Enoc Gaines MD, as attested by the provider's signature.
== END 2016-10-06 13:32 | disposition home or self-care (01) ==
LOC: ED 17:37 → SUATTDRO 23:15 → 3N 23:15 → ICU 10-04 17:55 → 3N 10-05 17:17
PROVIDERS: ATTEND Internal Medicine

== ENCOUNTER 2017-02-21 12:49 | Inpatient (IN) ==
[2017-02-21 13:16] LABS: MANUAL DIFF NEEDED? NO
[2017-02-21 13:18] LABS: BASO% 0.4 % (0.0-0.8); EOS# 0.01 X1000 (0.0-0.7); EOS% 0.1 % (0.0-10.0); HEMATOCRIT 40.8 % (37.0-47.0); HEMOGLOBIN 13.9 g/dL (12.0-16.0); LYMPH# 1.48 X1000 (1.2-3.4); LYMPH% 19.1 % (20.5-51.1); MCH 29.9 PG (27-31); MCHC 34.1 g/dL (33-37); MCV 87.7 FL (81-99); MONO# 0.27 X1000 (0.11-0.59); MONO% 3.5 % (1.7-9.3); MPV 9.2 FL (7.4-10.4); NEUT% 76.9 % (42.2-75.2); PLT 308 X1000 (130-400); RBC 4.65 XMIL (4.2-5.4)
[2017-02-21 13:38] LABS: INR 1.1; PROTIME 11.6 Seconds (9.2-11.7); PTT 29.1 Seconds (22.0-36.0)
[2017-02-21 13:43] LABS: AGAP 27; ALBUMIN 4.4 g/dL (3.5-5.0); ALKALINE PHOSPHATASE 484 U/L (32-104); BUN 11 mg/dL (8-22); CHLORIDE 99 mmol/L (98-107); COSMO 288; GOT 174 U/L (10-30); GPT 63 U/L (10-36); POTASSIUM 3.7 mmol/L (3.5-5.1); SODIUM 145 mmol/L (136-145); TCO2 19 mmol/L (25-35); TOTAL BILIRUBIN 0.68 mg/dL (0.20-1.00); TOTAL PROTEIN 8.6 g/dL (6.3-8.3)
[2017-02-21 14:03] LABS: URINE CULTURE NEEDED? NO; URINE MICRO REVIEW NEEDED? NO; URINE SOURCE CLEAN CATCH
[2017-02-21 14:07] LABS: BILIRUBIN URINE SMALL (NEGATIVE); BLOOD URINE SMALL (NEGATIVE); COLOR YELLOW; GLUCOSE URINE NEGATIVE (NEGATIVE); LEUKOCYTES URINE NEGATIVE (NEGATIVE); NITRITE URINE NEGATIVE (NEGATIVE); PH URINE 6.5; PROTEIN URINE >600 mg/dL (NEGATIVE); SP GRAVITY URINE 1.026; TURBIDITY URINE CLEAR (CLEAR); UROBILINOGEN URINE NORMAL (NORMAL)
[2017-02-21 14:08] LABS: UR EPITHELIAL CELLS >10 /HPF (<10); URINE BACTERIA 1+ /HPF; URINE RBC <10 /HPF (<10); URINE WBC <10 /HPF (<10)
--- NOTE | 2017-02-21 15:17 | Diag Imaging Result Doc PS360 ---
FLAT/UPRIGHT ABD/1 VIEW CHEST - 02/21/2017 INDICATION: abdominal pain, cirrhosis of liver TECHNIQUE: Three views COMPARISON: None FINDINGS: The chest is clear. There is a nonobstructive bowel gas pattern. No free air or abnormal calcifications. IMPRESSION: Negative exam. Electronically signed by Shankar Vyas 02/21/2017 3:14 PM
[2017-02-21 16:37] LABS: AMYLASE 96 U/L (20-200); LIPASE 36 U/L (13-60)
[2017-02-21 17:02] LABS: UR AMPHETAMINES QUAL NONE DETECTED (NONE DETECT); UR BARBITUATES QUAL NONE DETECTED (NONE DETECT); UR BENZODIAZEPIN QUAL NONE DETECTED (NONE DETECT); UR CANNABINOIDS QUAL NONE DETECTED (NONE DETECT); UR COCAINE QUAL NONE DETECTED (NONE DETECT); UR METHADONE QUAL NONE DETECTED (NONE DETECT); UR OPIATES QUAL NONE DETECTED (NONE DETECT); UR OXYCODONE QUAL NONE DETECTED (NONE DETECT); UR PCP QUAL NONE DETECTED (NONE DETECT)
--- NOTE | 2017-02-21 17:07 | Diag Imaging Result Doc PS360 ---
CT ABDOMEN/PELVIS W/O CONTRAST - 02/21/2017 INDICATION: abd pain TECHNIQUE: A CT dose reduction protocol was used. COMPARISON: None FINDINGS: The lung bases are clear and the heart size is normal. There is severe diffuse fatty change of the liver. Tiny hyperdense cyst of the right kidney. Kidneys are otherwise normal. No radiodense renal stones. No hydronephrosis or hydroureter. There is a left ovarian cyst. This measures 4.4 cm. No free fluid. Urinary bladder, uterus, and rectum are normal. The colon is collapsed but there is suggestion of some wall thickening of the proximal colon. No small bowel obstruction or inflammation. There are moderate degenerative changes of the spine. No acute or suspicious bony lesion. IMPRESSION: 1. Probable colitis of the descending colon. 2. Severe hepatic steatosis. 3. Left ovarian cyst. Electronically signed by Shankar Vyas 02/21/2017 5:05 PM
[2017-02-21] MEDS ORDERED: PHENERGAN IV ONE (17:35)
[2017-02-21] MEDS ORDERED: SODIUM CHLORIDE 0.9% INJ ONE (17:35)
[2017-02-21] MEDS ORDERED: NS 1,000 ML ONE (17:41)
[2017-02-21] MEDS: ATIVAN IV SCH ×2 (17:45→19:59)
[2017-02-21] MEDS ORDERED: NS 1,000 ML IV ONE (17:49)
[2017-02-21] MEDS ORDERED: ATIVAN IV PRN (19:55)
[2017-02-21] MEDS ORDERED: ZOFRAN IV PRN (19:55)
[2017-02-21] MEDS: LIBRIUM PO SCH (21:19)
[2017-02-21] MEDS: NS 1,000 ML IV SCH ×2 (21:19→22:43)
[2017-02-21] MEDS: M.V.I.-12 10 ML, FOLIC ACID 1 MG, MAGNESIUM SULFATE 1 GM, THIAMINE 100 MG in NS 1,000 ML IV SCH (21:19)
[2017-02-21] MEDS: MORPHINE IV PRN (22:28)
[2017-02-21] MEDS: ATIVAN IV PRN (22:43)
[2017-02-22] MEDS: ATIVAN IV PRN ×8 (00:59→22:00)
[2017-02-22] MEDS: LIBRIUM PO SCH ×4 (04:04→20:12)
[2017-02-22 04:54] LABS: MANUAL DIFF NEEDED? NO
[2017-02-22 05:23] LABS: BASO% 0.3 % (0.0-0.8); EOS# 0.03 X1000 (0.0-0.7); EOS% 0.4 % (0.0-10.0); HEMATOCRIT 34.1 % (37.0-47.0); HEMOGLOBIN 11.4 g/dL (12.0-16.0); IMM GRAN# 0.02 X1000 (0.0-0.04); IMM GRAN% 0.3 % (0.0-0.5); LYMPH# 2.27 X1000 (1.2-3.4); LYMPH% 30.2 % (20.5-51.1); MCH 29.7 PG (27-31); MCHC 33.4 g/dL (33-37); MCV 88.8 FL (81-99); MONO# 0.49 X1000 (0.11-0.59); MONO% 6.5 % (1.7-9.3); MPV 9.8 FL (7.4-10.4); NEUT% 62.3 % (42.2-75.2); PLT 177 X1000 (130-400); RBC 3.84 XMIL (4.2-5.4)
[2017-02-22 05:36] LABS: AGAP 20; ALBUMIN 3.6 g/dL (3.5-5.0); ALKALINE PHOSPHATASE 398 U/L (32-104); BUN 9 mg/dL (8-22); CALCIUM 7.9 mg/dL (8.8-10.2); CHLORIDE 101 mmol/L (98-107); COSMO 279; GOT 91 U/L (10-30); GPT 41 U/L (10-36); POTASSIUM 3.5 mmol/L (3.5-5.1); SODIUM 141 mmol/L (136-145); TCO2 20 mmol/L (25-35); TOTAL BILIRUBIN 1.39 mg/dL (0.20-1.00); TOTAL PROTEIN 6.7 g/dL (6.3-8.3)
[2017-02-22 06:35] LABS: INR 1.2; PROTIME 12.8 Seconds (9.2-11.7); PTT 24.7 Seconds (22.0-36.0)
[2017-02-22] MEDS: PROTONIX IV SCH (09:16)
[2017-02-22] MEDS: MORPHINE IV PRN ×5 (09:16→23:57)
[2017-02-22] MEDS: NS 1,000 ML IV SCH (10:00)
[2017-02-23] MEDS: M.V.I.-12 10 ML, FOLIC ACID 1 MG, MAGNESIUM SULFATE 1 GM, THIAMINE 100 MG in NS 1,000 ML IV SCH ×2 (02:12→20:12)
[2017-02-23] MEDS: NS 1,000 ML IV SCH ×2 (02:13→19:35)
[2017-02-23] MEDS: ATIVAN IV PRN ×5 (02:13→20:12)
[2017-02-23] MEDS: LIBRIUM PO SCH ×4 (02:13→20:12)
[2017-02-23] MEDS: MORPHINE IV PRN ×5 (04:17→23:30)
[2017-02-23 04:33] LABS: MANUAL DIFF NEEDED? NO
[2017-02-23 04:37] LABS: BASO% 0.4 % (0.0-0.8); EOS# 0.07 X1000 (0.0-0.7); EOS% 1.5 % (0.0-10.0); HEMATOCRIT 33.2 % (37.0-47.0); HEMOGLOBIN 10.8 g/dL (12.0-16.0); LYMPH# 1.72 X1000 (1.2-3.4); LYMPH% 37.2 % (20.5-51.1); MCHC 32.5 g/dL (33-37); MONO# 0.23 X1000 (0.11-0.59); MPV 9.7 FL (7.4-10.4); NEUT% 55.9 % (42.2-75.2); PLT 141 X1000 (130-400); RBC 3.73 XMIL (4.2-5.4)
[2017-02-23 04:59] LABS: AGAP 11; ALBUMIN 3.2 g/dL (3.5-5.0); ALKALINE PHOSPHATASE 288 U/L (32-104); BUN 7 mg/dL (8-22); CALCIUM 8.3 mg/dL (8.8-10.2); CHLORIDE 107 mmol/L (98-107); COSMO 281; GOT 109 U/L (10-30); GPT 38 U/L (10-36); POTASSIUM 3.2 mmol/L (3.5-5.1); SODIUM 142 mmol/L (136-145); TCO2 24 mmol/L (25-35); TOTAL BILIRUBIN 0.58 mg/dL (0.20-1.00); TOTAL PROTEIN 5.9 g/dL (6.3-8.3)
[2017-02-23] MEDS ORDERED: KLOR-CON PO ONE (08:27)
[2017-02-23] MEDS: SODIUM CHLORIDE 0.9% INJ SCH (09:18)
[2017-02-23] MEDS: PROTONIX IV SCH (09:18)
[2017-02-23 11:44] LABS: HEPATITIS PROFILE ACUTE SEE COMMENTS
[2017-02-24] MEDS: LIBRIUM PO SCH ×2 (04:04→08:59)
[2017-02-24 06:40] LABS: MANUAL DIFF NEEDED? NO
[2017-02-24 06:41] LABS: BASO% 0.2 % (0.0-0.8); EOS# 0.13 X1000 (0.0-0.7); EOS% 2.9 % (0.0-10.0); HEMATOCRIT 35.1 % (37.0-47.0); HEMOGLOBIN 11.5 g/dL (12.0-16.0); LYMPH# 1.69 X1000 (1.2-3.4); LYMPH% 37.6 % (20.5-51.1); MCH 29.4 PG (27-31); MCHC 32.8 g/dL (33-37); MCV 89.8 FL (81-99); MONO# 0.18 X1000 (0.11-0.59); MPV 10.8 FL (7.4-10.4); NEUT% 55.3 % (42.2-75.2); PLT 112 X1000 (130-400); RBC 3.91 XMIL (4.2-5.4)
[2017-02-24 07:17] LABS: AGAP 10; BUN 9 mg/dL (8-22); CALCIUM 8.7 mg/dL (8.8-10.2); CHLORIDE 107 mmol/L (98-107); COSMO 284; POTASSIUM 3.7 mmol/L (3.5-5.1); SODIUM 143 mmol/L (136-145); TCO2 26 mmol/L (25-35)
[2017-02-24] MEDS: NS 1,000 ML IV SCH (07:52)
[2017-02-24] MEDS: SODIUM CHLORIDE 0.9% INJ SCH (08:42)
[2017-02-24] MEDS: PROTONIX IV SCH (08:43)
[2017-02-24] MEDS: MORPHINE IV PRN (08:57)
[2017-02-24 11:25] VITALS: BP 132/89
== END 2017-02-24 12:20 | disposition home or self-care (01) ==
LOC: ED 12:49 → ICU 18:20 → SUATTDRO 18:20 → EDIPHOLD 19:02 → ICU 19:50 → 4N 02-23 10:36
PROVIDERS: ATTEND Internal Medicine